=== PATIENT | male | born 1940 | race Caucasian/White ===

== ENCOUNTER 2021-08-01 17:45 | Inpatient (IN) ==
[2021-08-01 20:53] LABS: Basophils # (auto) 0.03 K/uL (0-0.2); Basophils % (auto) 0.4 %; Eosinophils % (auto) 10.7 %; Hemoglobin 16.3 g/dL (14.0-18.0); Immature Granulocytes # (auto) 0.02 K/uL (0.00-0.02); Immature Granulocytes % (auto) 0.3 %; Lymphocytes # (auto) 1.74 K/uL (1.2-3.4); Lymphocytes % (auto) 23.3 %; Mean Corpuscular Hemoglobin 30.5 pg (25-34); Mean Corpuscular Hgb Conc 33.3 g/dL (32-36); Mean Corpuscular Volume 91.6 fL (80-100); Mean Platelet Volume 9.9 fL (7.4-10.4); Monocytes # (auto) 0.82 K/uL (0.11-0.59); Neutrophils # (auto) 4.05 K/uL (1.4-6.5); Neutrophils % (auto) 54.3 %; Platelet Count 189 K/uL (130-400); RDW Coefficient of Variation 13.5 % (11.5-14.5); RDW Standard Deviation 45.3 fL (36.4-46.3); Red Blood Count 5.35 M/uL (4.7-6.1); White Blood Count 7.46 K/uL (4.8-10.8)
[2021-08-01 21:11] LABS: Albumin Level 3.4 gm/dl (3.4-5.0); BUN Creatinine Ratio 13.5 (10-20); Calcium 9.1 mg/dl (8.5-10.1); Creatinine Clr Calc Pharmacy 60.7 ml/min; Est GFR (African American) 78.6 ml/min; Est GFR (Non-African American) 67.8 ml/min; Potassium 4.7 mmol/L (3.5-5.1)
[2021-08-01 21:14] LABS: Bilirubin,Total 0.6 mg/dl (0.2-1); Globulin 3.6 gm/dl (2.5-4.0)
[2021-08-01 21:14] LABS: Appearance Urine Clear (Clear); Bilirubin Urine Negative (Negative); Blood Urine Negative (Negative); Color Urine Yellow; Glucose Urine UA Negative (Negative); Ketones Urine Negative (Negative); Leukocyte Esterase Urine Negative (Negative); Nitrite Urine Negative (Negative); Protein Urine Negative (Negative); Specific Gravity Urine 1.019 (1.000-1.030); Urobilinogen Urine Negative (Negative); pH Urine 5.5 (4.5-7.5)
[2021-08-01 23:02] LABS: INR 1.1 (0.9-1.1); Partial Thromboplastin Ratio 0.9; Partial Thromboplastin Time 24.2 Seconds (21.0-31.0); Prothrombin Time 10.9 Seconds (9.0-12.0)
[2021-08-01] MEDS ORDERED: cefTRIAXone SODIUM 2,000 MG/70 ML BAG IV STA (23:22)
[2021-08-01] MEDS ORDERED: DAPTOmycin 275 MG in SYRINGE 0 ML IV ONE (23:22)
[2021-08-01 23:39] LABS: C Reactive Protein 0.36 mg/dl (0-0.29)
--- NOTE | 2021-08-01 23:57 | History & Physical Report ---
Date of Service August 01, 2021 Assessment & Plan (1) Bilateral cellulitis of lower leg: Plan: Bilateral cellulitis of lower extremities/cellulitis of scrotum- Likely worsened by use of topical Neosporin, advised against further use. Continue daptomycin IV and ceftriaxone IV begun in the ED Wound care consult Venous Dopplers negative for DVT bilaterally Unclear etiology of multiple isolated skin lesions (2) Cellulitis of scrotum: Plan: See above (3) Benign prostatic hyperplasia with urinary obstruction: Plan: Continue dutasteride (4) Hypercholesterolemia: Plan: Continue rosuvastatin 20 mg at bedtime (5) Hypertension: Plan: Continue aspirin, lisinopril, and metoprolol succinate (6) GERD (gastroesophageal reflux disease): Plan: Continue omeprazole/pantoprazole History of Present Illness Chief Complaint: The patient presents to the emergency department with worsening wound infections over the past week and both lower extremities, and had been using Neosporin topically to each lesion Primary Care Provider: René Malik MD The patient is an 81-year-old male with a past history of being BPH with LUTS, gross hematuria, nephrolithiasis, hypertension, and hyperlipidemia who presents to the emergency department with symptoms above. Work-up in the emergency department included negative bilateral lower extremity venous Dopplers for DVT. Laboratories in the emergency department were normal, including a normal urinalysis and negative COVID-19 test. Patient did receive daptomycin IV and ceftriaxone IV from the ED while still in the ED. Allergies Allergy/AdvReac Type Severity Reaction Status Date / Time No Known Allergies Allergy Verified 08/01/21 22:59 Home Medications Medication Instructions Recorded Confirmed Type aspirin 81 mg tablet,delayed 162 mg PO QPM 06/24/21 08/01/21 History release cholecalciferol (vitamin D3) 25 25 mcg PO QAM 06/24/21 08/01/21 History mcg (1,000 unit) capsule (Vitamin D3) dutasteride 0.5 mg capsule 0.5 mg PO QPM 06/24/21 08/01/21 History (Avodart) glucosamine-chondroitin 250 mg-200 1 tab PO QPM 06/24/21 08/01/21 History mg tablet (Osteo Bi-Flex) lisinopril 20 mg tablet 20 mg PO QPM 06/24/21 08/01/21 History metoprolol succinate 100 mg 100 mg PO QAM 06/24/21 08/01/21 History tablet,extended release 24 hr omeprazole magnesium 20 mg 20 mg PO DAILY PRN 06/24/21 08/01/21 History tablet,delayed release (Prilosec OTC) rosuvastatin 20 mg tablet (Crestor) 20 mg PO QPM 06/24/21 08/01/21 History Past Med/Surg History Medical History (Updated 08/02/21 @ 04:39 by Bryan Dorado MD) BPH (benign prostatic hyperplasia) Deep vein thrombosis RT LEG (4 YEARS AGO/? REASON) GERD (gastroesophageal reflux disease) Hearing deficit History of bladder stone History of kidney stones History of skin cancer Hypercholesterolemia Hypertension Myocardial Infarction 10 YEARS AGO Nephrolithiasis Pulmonary embolism 4 YEARS AGO ? REASON Reactive airway disease NO INHALER TIA (transient ischemic attack) MAY 20, 2021>SYMPTOMS RESOLVED/NO DEFECITS Surgical History H/O eye surgery LEFT EYE LASER SURGERY History of anesthesia reaction History of colonoscopy History of cystoscopy History of heart artery stent 2 STENTS PLACED ([facility]/10 YEARS AGO) History of lithotripsy History of tooth extraction Family History Father History of parotid cancer Prostate cancer Cardiac disorder Mother Diabetes Cardiac disorder Brother Prostate cancer Kidney stones Other No family history of adverse response to anesthesia Social History Smoking Status: Former smoker Second Hand Exposure: No; Do You Dip or Chew Tobacco: No; Hx Alcohol Use: No Hx Substance Use: No 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 current occupational status: retired Feels Safe at Home: Yes Assistive Devices: Cane, Hearing Aid - Left and Hearing Aid - Right Review of Systems Review of Systems: The patient denies chest pain, palpitations, shortness of breath, dyspnea on exertion, cough, sore throat, fevers, chills, sweats, nausea, vomiting, diarrhea , constipation, abdominal pain, pelvic pain, blood in urine or stool, dysuria, urinary frequency or urgency, lightheadedness, dizziness, headache, memory loss, loss of consciousness, imbalance, focal or generalized weakness, numbness or tingling in arms, generalized arthralgias or myalgias, back or neck pain, or night sweats. The review of systems is otherwise negative other than for that already noted above, and at least 10 systems have been reviewed. Physical Exam Physical Exam: The patient is awake, alert and oriented 3, well developed and well nourished, normocephalic and atraumatic, lying in bed and in no acute distress. HEENT--PERRL, EOMI, mucous membranes and oropharynx normal Neck--supple. No JVD. No bruits. Thyroid normal, trachea midline, no adenopathy. Heart--normal S1 and S2. No murmurs, rubs or gallops. Lungs--clear bilaterally, no respiratory distress, no accessory muscle use. Abdomen--normal bowel sounds and soft. Nontender. Nondistended, no hernias or masses, no organomegaly. Extremities--multiple skin abrasions bilateral lower extremities, with surrounding erythema, and rash extending to groin Dermatologic--see above Neurologic--cranial nerves II through XII grossly intact. Rheumatologic--limited by painful skin lesions Psychiatric--normal affect. Results & Data Results & Data ([facility]) Vital Signs (Past 12 Hours) Vital Signs Temp Pulse Pulse Resp BP Pulse Ox 08/01/21 23:54 71 20 178/95 H 96 08/01/21 22:25 97.9 F 76 18 184/93 H 96 08/01/21 18:53 97.3 F L 68 20 96 Laboratory Results Laboratory Results WBC 7.46 K/uL (4.8-10.8) 08/01/21 20:41 RBC 5.35 M/uL (4.7-6.1) 08/01/21 20:41 Hgb 16.3 g/dL (14.0-18.0) 08/01/21 20:41 Hct 49.0 % (42-52) 08/01/21 20:41 MCV 91.6 fL (80-100) 08/01/21 20:41 MCH 30.5 pg (25-34) 08/01/21 20:41 MCHC 33.3 g/dL (32-36) 08/01/21 20:41 RDW Std Deviation 45.3 fL (36.4-46.3) 08/01/21 20:41 RDW Coeff of Kateryna 13.5 % (11.5-14.5) 08/01/21 20:41 Plt Count 189 K/uL (130-400) 08/01/21 20:41 MPV 9.9 fL (7.4-10.4) 08/01/21 20:41 Immature Gran % (Auto) 0.3 % 08/01/21 20:41 Neut % (Auto) 54.3 % 08/01/21 20:41 Lymph % (Auto) 23.3 % 08/01/21 20:41 [place] % (Auto) 11.0 % 08/01/21 20:41 Eos % (Auto) 10.7 % 08/01/21 20:41 Baso % (Auto) 0.4 % 08/01/21 20:41 Neut # (Auto) 4.05 K/uL (1.4-6.5) 08/01/21 20:41 Lymph # (Auto) 1.74 K/uL (1.2-3.4) 08/01/21 20:41 [place] # (Auto) 0.82 K/uL (0.11-0.59) H 08/01/21 20:41 Eos # (Auto) 0.80 K/uL (0-0.5) H 08/01/21 20:41 Baso # (Auto) 0.03 K/uL (0-0.2) 08/01/21 20:41 Immature Gran # (Auto) 0.02 K/uL (0.00-0.02) 08/01/21 20:41 ESR 18 mm/hr (0-20) 08/01/21 20:41 PT 10.9 Seconds (9.0-12.0) 08/01/21 22:34 INR 1.1 (0.9-1.1) 08/01/21 22:34 APTT 24.2 Seconds (21.0-31.0) 08/01/21 22:34 PTT Ratio 0.9 08/01/21 22:34 Sodium 140 mmol/L (136-145) 08/01/21 20:41 Potassium 4.7 mmol/L (3.5-5.1) 08/01/21 20:41 Chloride 106 mmol/L (98-107) 08/01/21 20:41 Carbon Dioxide 29 mmol/L (21-32) 08/01/21 20:41 Anion Gap 5.0 (3-11) 08/01/21 20:41 BUN 14 mg/dl (7-18) 08/01/21 20:41 Creatinine 1.03 mg/dl (0.6-1.4) 08/01/21 20:41 Est Cr Clr Drug Dosing 60.7 ml/min 08/01/21 20:41 Est GFR ( Amer) 78.6 ml/min 08/01/21 20:41 Est GFR (Non-Af Amer) 67.8 ml/min 08/01/21 20:41 BUN/Creatinine Ratio 13.5 (10-20) 08/01/21 20:41 Glucose 94 mg/dl (70-99) 08/01/21 20:41 Calcium 9.1 mg/dl (8.5-10.1) 08/01/21 20:41 Total Bilirubin 0.6 mg/dl (0.2-1) 08/01/21 20:41 AST 21 U/L (15-37) 08/01/21 20:41 ALT 27 U/L (12-78) 08/01/21 20:41 Alkaline Phosphatase 93 U/L (45-117) 08/01/21 20:41 C-Reactive Protein 0.36 mg/dl (0-0.29) H 08/01/21 20:41 Total Protein 7.0 gm/dl (6.4-8.2) 08/01/21 20:41 Albumin 3.4 gm/dl (3.4-5.0) 08/01/21 20:41 Globulin 3.6 gm/dl (2.5-4.0) 08/01/21 20:41 Albumin/Globulin Ratio 1.0 (0.9-2) 08/01/21 20:41 Urine Color Yellow 08/01/21 Unknown Urine Appearance Clear (Clear) 08/01/21 Unknown Urine pH 5.5 (4.5-7.5) 08/01/21 Unknown Ur Specific [place] 1.019 (1.000-1.030) 08/01/21 Unknown Urine Protein Negative (Negative) 08/01/21 Unknown Urine Glucose (UA) Negative (Negative) 08/01/21 Unknown Urine Ketones Negative (Negative) 08/01/21 Unknown Urine Blood Negative (Negative) 08/01/21 Unknown Urine Nitrite Negative (Negative) 08/01/21 Unknown Urine Bilirubin Negative (Negative) 08/01/21 Unknown Urine Urobilinogen Negative (Negative) 08/01/21 Unknown Ur Leukocyte Esterase Negative (Negative) 08/01/21 Unknown COVID-19 Eval Order Covid19 at [facility] 08/02/21 00:00 SARS-CoV-2 (PCR) NEGATIVE (Negative) 08/02/21 00:00 Code Status & VTE Plan Code Status Full code VTE Prophylaxis Plan VTE Prophylaxis will be ordered: Yes PG Care Time/CCT Total # of Minutes Spent Total Time Spent with Patient: Total time spent is greater than 50% in coordination of care (as documented) at patient's floor/unit and/or counseling patient: Coding Level of Care Code 15713 Initial Inpt Care Lvl 3 Diagnoses Bilateral cellulitis of lower leg L03.116; L03.115 Cellulitis of scrotum N49.2 Benign prostatic hyperplasia with urinary obstruction N40.1; N13.8 Hypercholesterolemia E78.00 Hypertension I10 GERD (gastroesophageal reflux disease) K21.9
--- NOTE | 2021-08-02 02:01 | Emergency Department Note ---
Impression & Plan Bilateral cellulitis of lower leg, Cellulitis of scrotum ED Provider Note INFORMANT: Patient and daughter ED PROVIDER(S): Rajeev Gutierres MD CHIEF COMPLAINT: Infection PLAN: Disposition: Admitted Condition: Good Outpatient prescription management: none Referral: None MEDICAL DECISION MAKING: Patient presented because of concerns about wound infection. His leg examination as well scrotal examination was concerning for cellulitis. Cultures were obtained including a superficial culture of the fluid draining on the left thigh. The patient had IV Rocephin and daptomycin given. I discussed conservative management with admission and further treatment in the hospital. Patient and family were in agreement. Consultation was made with Dr. Bryan Dorado of the [facility] service. Patient was evaluated in the ER for further management. Triage Nursing notes reviewed and agree them. Vital Signs: reviewed and remarkable for no significant abnormalities Differential diagnosis: Cellulitis, abscess, MRSA infection, DVT, necrotizing fasciitis, dermatitis, drug eruption, allergic reaction, as well as other pathologies. Diagnostics interpreted by me: EC Lead ECG performed and revealed sinus rhythym at 69 bpm with sinus arrhythmia, normal Leigh, QRS normal. No elevation or depression. No PACs or PVCs Cardiac Monitoring: none Imaging studies: Ultrasound imaging of the bilateral lower extremities is negative for DVT. HPI: The patient is a 81 year old male who presents to the Emergency Room with complaints of bilateral leg raise R possibly infected. This started 8 days ago and is rapidly worsening. The patient also notes the following associated symptoms, blistering of the skin on both legs and scrotum, erythema of both legs around the wounds as well as the scrotum. The patient has tried topical antibiotic ointment for relieving factors. Current pain is rated as 4/10. Pt denies LOC, headache, fevers, chills, diaphoresis, visual changes, neck pain, chest pain, breathing difficulties, nausea, vomiting, abdominal pain, back pain, melena, hematochezia, urinary symptoms, numbness, weakness, lymphadenopathy, or other complaints. ROS: See above HPI for pertinent positives & negatives. A total of 10 systems reviewed and were otherwise negative. PAST MEDICAL HISTORY:See Below , DVT, PE PAST SURGICAL HISTORY:See Below, FAMILY HISTORY:See Below SOCIAL HISTORY:See Below, patient just moved. He is without primary physician currently. HOME MEDICATIONS:See Below ALLERGIES:See Below VITALS:See Below PHYSICAL EXAMINATION: GENERAL: Awake, alert, well-appearing, in no distress HENT: Normocephalic, atraumatic. Oropharynx unremarkable. EYES: Normal conjunctiva. Sclera non-icteric. NECK: Inspection normal. Non-tender. Supple. No nuchal rigidity. FROM. No masses. RESPIRATORY: Clear to auscultation. No wheezes. No rales. Normal respiratory effort. CARDIAC: Normal rate. Normal rhythm. No murmurs. No rubs. Extremities warm and well perfused. Pulses equal. No JVD. GI: Soft, non-distended. No tenderness to palpation. No rebound or guarding. No masses. RECTAL: Deferred. : There is erythema of the scrotum. Several areas of blistering-like wound noted in different stages of healing. No crepitus or subcu air appreciated. MUSCULOSKELETAL: Atraumatic. Chest examination reveals no tenderness. The back is symmetrical on inspection without obvious abnormality. There is no CVA tenderness to palpation. No joint edema. LOWER EXTREMITIES: Calves are equal size bilaterally and non-tender. Trace ed blaze. Scattered bullae and desquamation noted in the medial aspect of both thighs with surrounding erythema, warmth and tenderness concerning for secondary cellulitis. No crepitus. NEURO: Normal sensorium. No sensory or motor deficits noted. SKIN: No rash or jaundice noted. Rajeev Gutierres MD Past Med/Surg History Medical History BPH (benign prostatic hyperplasia) Deep vein thrombosis RT LEG (4 YEARS AGO/? REASON) GERD (gastroesophageal reflux disease) Hearing deficit History of bladder stone History of kidney stones History of skin cancer Hypercholesterolemia Hypertension Myocardial Infarction 10 YEARS AGO Nephrolithiasis Pulmonary embolism 4 YEARS AGO ? REASON Reactive airway disease NO INHALER TIA (transient ischemic attack) MAY 20, 2021>SYMPTOMS RESOLVED/NO DEFECITS Surgical History H/O eye surgery LEFT EYE LASER SURGERY History of anesthesia reaction History of colonoscopy History of cystoscopy History of heart artery stent 2 STENTS PLACED ([facility]/10 YEARS AGO) History of lithotripsy History of tooth extraction Family History Father History of parotid cancer Prostate cancer Cardiac disorder Mother Diabetes Cardiac disorder Brother Prostate cancer Kidney stones Other No family history of adverse response to anesthesia Social History Smoking Status: Former smoker Second Hand Exposure: No; Hx Alcohol Use: No 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 Beliefs That Will Affect Care: None marital status: / Current Living Situation: Alone current occupational status: retired Feels Safe at Home: Yes Assistive Devices: Cane and Glasses Allergies Allergies Allergy/AdvReac Type Severity Reaction Status Date / Time No Known Allergies Allergy Verified 08/01/21 22:59 Home Meds Home Medications Medication Instructions Recorded Confirmed aspirin 81 mg tablet,delayed 162 mg PO QPM 06/24/21 08/01/21 release cholecalciferol (vitamin D3) 25 25 mcg PO QAM 06/24/21 08/01/21 mcg (1,000 unit) capsule (Vitamin D3) dutasteride 0.5 mg capsule 0.5 mg PO QPM 06/24/21 08/01/21 (Avodart) glucosamine-chondroitin 250 mg-200 1 tab PO QPM 06/24/21 08/01/21 mg tablet (Osteo Bi-Flex) lisinopril 20 mg tablet 20 mg PO QPM 06/24/21 08/01/21 metoprolol succinate 100 mg 100 mg PO QAM 06/24/21 08/01/21 tablet,extended release 24 hr omeprazole magnesium 20 mg 20 mg PO DAILY PRN 06/24/21 08/01/21 tablet,delayed release (Prilosec OTC) rosuvastatin 20 mg tablet (Crestor) 20 mg PO QPM 06/24/21 08/01/21 Results & Data (ED) Vital Signs Vital Signs - 24 hr 08/01/21 18:53 08/01/21 22:25 08/01/21 23:54 Temperature 36.3 C L 36.6 C Temperature Source Temporal Artery Scan Oral Pulse Rate 68 Pulse Rate [Right Finger] 76 71 Respiratory Rate 20 18 20 Respiratory Effort / Characteristics Non-Labored Spontaneous Respiratory Depth Normal Normal Blood Pressure [Right Arm] 184/93 H 178/95 H Blood Pressure Mean [Right Arm] 123 122 Pulse Oximetry 96 96 96 Oxygen Delivery Method Room Air Room Air Room Air Sepsis New/Unexplained Change in Mental Status N/A Sepsis Action Taken by Nursing No Action Required 08/02/21 01:07 Temperature Temperature Source Pulse Rate Pulse Rate [Right Finger] 70 Respiratory Rate 20 Respiratory Effort / Characteristics Non-Labored Spontaneous Respiratory Depth Normal Blood Pressure [Right Arm] 178/95 H Blood Pressure Mean [Right Arm] 122 Pulse Oximetry 94 Oxygen Delivery Method Room Air Sepsis New/Unexplained Change in Mental Status Sepsis Action Taken by Nursing Laboratory Data Result diagrams: 08/01/21 20:41 08/01/21 20:41 Lab Results 08/01/21 08/01/21 08/01/21 Range/Units 20:41 20:41 20:41 WBC 7.46 (4.8-10.8) K/uL RBC 5.35 (4.7-6.1) M/uL Hgb 16.3 (14.0-18.0) g/dL Hct 49.0 (42-52) % MCV 91.6 (80-100) fL MCH 30.5 (25-34) pg MCHC 33.3 (32-36) g/dL RDW Std Deviation 45.3 (36.4-46.3) fL RDW Coeff of Kateryna 13.5 (11.5-14.5) % Plt Count 189 (130-400) K/uL MPV 9.9 (7.4-10.4) fL Immature Gran % (Auto) 0.3 % Neut % (Auto) 54.3 % Lymph % (Auto) 23.3 % [place] % (Auto) 11.0 % Eos % (Auto) 10.7 % Baso % (Auto) 0.4 % Neut # (Auto) 4.05 (1.4-6.5) K/uL Lymph # (Auto) 1.74 (1.2-3.4) K/uL [place] # (Auto) 0.82 H (0.11-0.59) K/uL Eos # (Auto) 0.80 H (0-0.5) K/uL Baso # (Auto) 0.03 (0-0.2) K/uL Immature Gran # (Auto) 0.02 (0.00-0.02) K/uL ESR 18 (0-20) mm/hr PT (9.0-12.0) Seconds INR (0.9-1.1) APTT (21.0-31.0) Seconds PTT Ratio Sodium 140 (136-145) mmol/L Potassium 4.7 (3.5-5.1) mmol/L Chloride 106 (98-107) mmol/L Carbon Dioxide 29 (21-32) mmol/L Anion Gap 5.0 (3-11) BUN 14 (7-18) mg/dl Creatinine 1.03 (0.6-1.4) mg/dl Est Cr Clr Drug Dosing 60.7 ml/min Est GFR ( Amer) 78.6 ml/min Est GFR (Non-Af Amer) 67.8 ml/min BUN/Creatinine Ratio 13.5 (10-20) Glucose 94 (70-99) mg/dl Calcium 9.1 (8.5-10.1) mg/dl Total Bilirubin 0.6 (0.2-1) mg/dl AST 21 (15-37) U/L ALT 27 (12-78) U/L Alkaline Phosphatase 93 (45-117) U/L C-Reactive Protein 0.36 H (0-0.29) mg/dl Total Protein 7.0 (6.4-8.2) gm/dl Albumin 3.4 (3.4-5.0) gm/dl Globulin 3.6 (2.5-4.0) gm/dl Albumin/Globulin Ratio 1.0 (0.9-2) Urine Color Urine Appearance (Clear) Urine pH (4.5-7.5) Ur Specific [place] (1.000-1.030) Urine Protein (Negative) Urine Glucose (UA) (Negative) Urine Ketones (Negative) Urine Blood (Negative) Urine Nitrite (Negative) Urine Bilirubin (Negative) Urine Urobilinogen (Negative) Ur Leukocyte Esterase (Negative) COVID-19 Eval Order SARS-CoV-2 (PCR) (Negative) 08/01/21 08/01/21 08/02/21 Range/Units 22:34 Unknown 00:00 WBC (4.8-10.8) K/uL RBC (4.7-6.1) M/uL Hgb (14.0-18.0) g/dL Hct (42-52) % MCV (80-100) fL MCH (25-34) pg MCHC (32-36) g/dL RDW Std Deviation (36.4-46.3) fL RDW Coeff of Kateryna (11.5-14.5) % Plt Count (130-400) K/uL MPV (7.4-10.4) fL Immature Gran % (Auto) % Neut % (Auto) % Lymph % (Auto) % [place] % (Auto) % Eos % (Auto) % Baso % (Auto) % Neut # (Auto) (1.4-6.5) K/uL Lymph # (Auto) (1.2-3.4) K/uL [place] # (Auto) (0.11-0.59) K/uL Eos # (Auto) (0-0.5) K/uL Baso # (Auto) (0-0.2) K/uL Immature Gran # (Auto) (0.00-0.02) K/uL ESR (0-20) mm/hr PT 10.9 (9.0-12.0) Seconds INR 1.1 (0.9-1.1) APTT 24.2 (21.0-31.0) Seconds PTT Ratio 0.9 Sodium (136-145) mmol/L Potassium (3.5-5.1) mmol/L Chloride (98-107) mmol/L Carbon Dioxide (21-32) mmol/L Anion Gap (3-11) BUN (7-18) mg/dl Creatinine (0.6-1.4) mg/dl Est Cr Clr Drug Dosing ml/min Est GFR ( Amer) ml/min Est GFR (Non-Af Amer) ml/min BUN/Creatinine Ratio (10-20) Glucose (70-99) mg/dl Calcium (8.5-10.1) mg/dl Total Bilirubin (0.2-1) mg/dl AST (15-37) U/L ALT (12-78) U/L Alkaline Phosphatase (45-117) U/L C-Reactive Protein (0-0.29) mg/dl Total Protein (6.4-8.2) gm/dl Albumin (3.4-5.0) gm/dl Globulin (2.5-4.0) gm/dl Albumin/Globulin Ratio (0.9-2) Urine Color Yellow Urine Appearance Clear (Clear) Urine pH 5.5 (4.5-7.5) Ur Specific [place] 1.019 (1.000-1.030) Urine Protein Negative (Negative) Urine Glucose (UA) Negative (Negative) Urine Ketones Negative (Negative) Urine Blood Negative (Negative) Urine Nitrite Negative (Negative) Urine Bilirubin Negative (Negative) Urine Urobilinogen Negative (Negative) Ur Leukocyte Esterase Negative (Negative) COVID-19 Eval Order Covid19 at [facility] SARS-CoV-2 (PCR) (Negative) 08/02/21 Range/Units 00:00 WBC (4.8-10.8) K/uL RBC (4.7-6.1) M/uL Hgb (14.0-18.0) g/dL Hct (42-52) % MCV (80-100) fL MCH (25-34) pg MCHC (32-36) g/dL RDW Std Deviation (36.4-46.3) fL RDW Coeff of Kateryna (11.5-14.5) % Plt Count (130-400) K/uL MPV (7.4-10.4) fL Immature Gran % (Auto) % Neut % (Auto) % Lymph % (Auto) % [place] % (Auto) % Eos % (Auto) % Baso % (Auto) % Neut # (Auto) (1.4-6.5) K/uL Lymph # (Auto) (1.2-3.4) K/uL [place] # (Auto) (0.11-0.59) K/uL Eos # (Auto) (0-0.5) K/uL Baso # (Auto) (0-0.2) K/uL Immature Gran # (Auto) (0.00-0.02) K/uL ESR (0-20) mm/hr PT (9.0-12.0) Seconds INR (0.9-1.1) APTT (21.0-31.0) Seconds PTT Ratio Sodium (136-145) mmol/L Potassium (3.5-5.1) mmol/L Chloride (98-107) mmol/L Carbon Dioxide (21-32) mmol/L Anion Gap (3-11) BUN (7-18) mg/dl Creatinine (0.6-1.4) mg/dl Est Cr Clr Drug Dosing ml/min Est GFR ( Amer) ml/min Est GFR (Non-Af Amer) ml/min BUN/Creatinine Ratio (10-20) Glucose (70-99) mg/dl Calcium (8.5-10.1) mg/dl Total Bilirubin (0.2-1) mg/dl AST (15-37) U/L ALT (12-78) U/L Alkaline Phosphatase (45-117) U/L C-Reactive Protein (0-0.29) mg/dl Total Protein (6.4-8.2) gm/dl Albumin (3.4-5.0) gm/dl Globulin (2.5-4.0) gm/dl Albumin/Globulin Ratio (0.9-2) Urine Color Urine Appearance (Clear) Urine pH (4.5-7.5) Ur Specific [place] (1.000-1.030) Urine Protein (Negative) Urine Glucose (UA) (Negative) Urine Ketones (Negative) Urine Blood (Negative) Urine Nitrite (Negative) Urine Bilirubin (Negative) Urine Urobilinogen (Negative) Ur Leukocyte Esterase (Negative) COVID-19 Eval Order SARS-CoV-2 (PCR) NEGATIVE (Negative) Administered Medications Discontinued Medications Ceftriaxone Sodium (Rocephin) 2,000 mg in 70 mls @ 140 mls/hr IV NOW STA Stop: 08/01/21 23:51 Last Admin: 08/02/21 01:05 Dose: 140 mls/hr Documented by: [id number] Daptomycin 275 mg/ Syringe 5.5 mls @ 2.75 mls/min IV NOW ONE; Protocol Stop: 08/01/21 23:23 Last Admin: 08/02/21 01:02 Dose: 2.75 mls/min Documented by: [id number] Discharge Plan Visit Data Chief Complaint: Infection, Wound Stated Complaint: CELLULITIS IN BOTH LEGS, WOUNDS, REDNESS ED Provider: Rajeev Gutierres Discharge Problem: Bilateral cellulitis of lower leg, Cellulitis of scrotum Forms Stand Alone Forms: My [facility] Prescriptions Prescriptions: No Action lisinopril 20 mg Tablet 20 mg PO QPM RF: 0 metoprolol succinate 100 mg Tablet Extended Release 24 Hr 100 mg PO QAM RF: 0 cholecalciferol (vitamin D3) [Vitamin D3] 25 mcg (1,000 unit) Capsule 25 mcg PO QAM RF: 0 dutasteride [Avodart] 0.5 mg Capsule 0.5 mg PO QPM RF: 0 rosuvastatin [Crestor] 20 mg Tablet 20 mg PO QPM RF: 0 aspirin 81 mg Tablet,Delayed Release (Dr/Ec) 162 mg PO QPM RF: 0 glucosamine-chondroitin [Osteo Bi-Flex] 250-200 mg Tablet 1 tab PO QPM RF: 0 omeprazole magnesium [Prilosec OTC] 20 mg Tablet,Delayed Release (Dr/Ec) 20 mg PO DAILY PRN (Reason: Acid Reflux) RF: 0 Referrals Referrals: René Malik MD [Primary Care Provider] -
[2021-08-02] MEDS ORDERED: ONDANSETRON INJ 2 MG/ML 2 ML VIAL IV PRN (03:21)
[2021-08-02] MEDS ORDERED: ACETAMINOPHEN 325 MG TAB PO PRN (03:21)
[2021-08-02] MEDS ORDERED: PANTOprazole 40 MG TAB PO PRN (03:36)
[2021-08-02] MEDS: DUTASTERIDE: ORDER AWAITING ACTION SCH ×3 (07:31→23:02)
[2021-08-02 08:06] LABS: Basophils # (auto) 0.03 K/uL (0-0.2); Basophils % (auto) 0.4 %; Eosinophils # (auto) 0.85 K/uL (0-0.5); Eosinophils % (auto) 11.1 %; Hematocrit (blood only) 46.1 % (42-52); Hemoglobin 15.8 g/dL (14.0-18.0); Immature Granulocytes # (auto) 0.01 K/uL (0.00-0.02); Immature Granulocytes % (auto) 0.1 %; Lymphocytes # (auto) 1.74 K/uL (1.2-3.4); Lymphocytes % (auto) 22.8 %; Mean Corpuscular Hemoglobin 30.4 pg (25-34); Mean Corpuscular Hgb Conc 34.3 g/dL (32-36); Mean Corpuscular Volume 88.8 fL (80-100); Mean Platelet Volume 10.2 fL (7.4-10.4); Monocytes # (auto) 0.83 K/uL (0.11-0.59); Monocytes % (auto) 10.9 %; Neutrophils # (auto) 4.17 K/uL (1.4-6.5); Neutrophils % (auto) 54.7 %; Platelet Count 168 K/uL (130-400); RDW Coefficient of Variation 13.2 % (11.5-14.5); RDW Standard Deviation 43.1 fL (36.4-46.3); Red Blood Count 5.19 M/uL (4.7-6.1); White Blood Count 7.63 K/uL (4.8-10.8)
--- NOTE | 2021-08-02 08:28 | Ultrasound Report ---
US venous doppler LE BI CLINICAL HISTORY: eval DVT COMPARISON STUDY: No previous studies for comparison. FINDINGS: Real-time and color flow Doppler imaging were performed. Flow was seen within the bilateral femoral, popliteal and calf veins with no intraluminal thrombus demonstrated. The saphenous vein is patent. Multiple skin lesions in bilateral medial thigh reported by premises technician. IMPRESSION: No evidence of deep venous thrombosis in bilateral lower extremities. ACT 112: Negative or not required by law. The above report was generated using voice recognition software. It may contain grammatical, syntax o r spelling errors. Electronically signed by: Carolyn Cortes DO 08/02/2021 8:27 AM
[2021-08-02] MEDS: CHOLECALCIFEROL 1,000 UNITS 25 MCG TAB PO SCH (08:46)
[2021-08-02] MEDS: METOPROLOL SUCC 50MG EXT REL TAB PO SCH (08:46)
[2021-08-02 08:50] LABS: Albumin Globulin Ratio 0.9 (0.9-2); Albumin Level 3.1 gm/dl (3.4-5.0); BUN Creatinine Ratio 14.2 (10-20); Bilirubin,Total 0.6 mg/dl (0.2-1); Calcium 8.8 mg/dl (8.5-10.1); Creatinine Clr Calc Pharmacy 78.3 ml/min; Est GFR (African American) 97.6 ml/min; Est GFR (Non-African American) 84.2 ml/min; Globulin 3.4 gm/dl (2.5-4.0); Potassium 3.6 mmol/L (3.5-5.1); Total Protein 6.5 gm/dl (6.4-8.2)
--- NOTE | 2021-08-02 18:43 | Hospitalist Progress Note ---
Date of Service August 02, 2021 Assessment & Plan (1) Bilateral cellulitis of lower leg: Plan: - Bilateral cellulitis of lower extremities/cellulitis of scrotum -- Reports sporadic pimple-like lesions that blister and he tends to pop them - no known H/O MRSA but seems convincing -- Does not look like a contact dermatitis or specifically like bites; maybe a fungal component from the groin but even satelite lesions from fungal infections are completely consistent -- States he did change to new adult depends so maybe some irritation in the groin however again doesnt really reflect a contact dermatitis - Will continue Dapto and Ceftriaxone at this time; surface cx pending - However given discription likely will cover for MRSA; wound care following and instructions given - if wound do not close in 1-2 weeks will need wound care follow-up (2) Cellulitis of scrotum: Plan: - See above (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 Just had his wounds dressed during my visit. Uncertain the etiology but states the tend to start as little pimples that blister then he pops them. Possible MRSA? No pets in the home so unlikely flea bites and do not appear like bites. Did recently try new adult depend briefs due to the previous brand causing groin irritation. Maybe a fungal component? So far no growth on culture. No direct pain with the lesions. Review of Systems Review of Systems: REVIEW OF SYSTEMS General/Constitutional: Denies fever/chills Cardiovascular: Denies chest pain, palpitations, edema Respiratory: Denies cough, sputum, SOB, wheezing GI: Denies nausea, vomiting, abdominal pain, constipation, diarrhea : Denies dysuria Musculoskeletal: Denies joint/muscle aches Neurologic: Denies dizziness/lightheadedness Skin: + blistering boils that mostly scab but some do not scab over with drainage Results & Data Results & Data ([facility]) Vital Signs (Past 12 Hours) Vital Signs Temp Pulse Resp BP Pulse Ox 08/02/21 15:01 36.5 C 69 16 183/86 H 94 08/02/21 07:26 36.4 C L 66 16 149/75 H 96 PG Care Time/CCT Total # of Minutes Spent Total Time Spent with Patient: Total time spent is greater than 50% in coordination of care (as documented) at patient's floor/unit and/or counseling patient: Coding Level of Care Code 41366 Subseq Hosp Care Lvl 2 Diagnoses Bilateral cellulitis of lower leg L03.116; L03.115 Cellulitis of scrotum N49.2 Benign prostatic hyperplasia with urinary obstruction N40.1; N13.8 Hypercholesterolemia E78.00 Hypertension I10 GERD (gastroesophageal reflux disease) K21.9
[2021-08-02] MEDS ORDERED: NON-FORMULARY MEDICATION (Glucosamine-Chondroitin [Osteo Bi-Flex] 250-200 mg Tablet) PO SCH (21:00)
[2021-08-02] MEDS ORDERED: cefTRIAXone SODIUM 2,000 MG in DEXTROSE 5% 50 ML IV SCH (21:00)
[2021-08-02] MEDS ORDERED: ASPIRIN 81 MG ECTAB PO SCH (21:00)
[2021-08-02] MEDS ORDERED: ROSUVASTATIN CALCIUM 20 MG TAB PO SCH (21:00)
[2021-08-02] MEDS ORDERED: lisinopril 20 MG TAB PO SCH (21:00)
[2021-08-02] MEDS: NYSTATIN POWDER 15GM BTL EXT SCH (21:09)
[2021-08-02] MEDS ORDERED: DAPTOmycin 275 MG in SYRINGE 0 ML IV SCH (23:00)
[2021-08-03 06:23] LABS: Basophils # (auto) 0.05 K/uL (0-0.2); Basophils % (auto) 0.5 %; Eosinophils # (auto) 0.91 K/uL (0-0.5); Eosinophils % (auto) 9.7 %; Hematocrit (blood only) 52.3 % (42-52); Hemoglobin 17.3 g/dL (14.0-18.0); Immature Granulocytes # (auto) 0.02 K/uL (0.00-0.02); Immature Granulocytes % (auto) 0.2 %; Lymphocytes % (auto) 23.4 %; Mean Corpuscular Hemoglobin 30.2 pg (25-34); Mean Corpuscular Hgb Conc 33.1 g/dL (32-36); Mean Corpuscular Volume 91.4 fL (80-100); Mean Platelet Volume 10.3 fL (7.4-10.4); Monocytes % (auto) 9.6 %; Neutrophils # (auto) 5.31 K/uL (1.4-6.5); Neutrophils % (auto) 56.6 %; Platelet Count 206 K/uL (130-400); RDW Coefficient of Variation 13.3 % (11.5-14.5); RDW Standard Deviation 44.6 fL (36.4-46.3); Red Blood Count 5.72 M/uL (4.7-6.1); White Blood Count 9.39 K/uL (4.8-10.8)
--- NOTE | 2021-08-03 06:23 | Electrocardiogram Report ---
Test Reason : Blood Pressure : / mmHG Vent. Rate : 069 BPM Atrial Rate : 069 BPM P-R Int : 146 ms QRS Dur : 082 ms QT Int : 398 ms P-R-T Axes : 081 034 040 degrees QTc Int : 426 ms Poor data quality, interpretation may be adversely affected Sinus rhythm with marked sinus arrhythmia Otherwise normal ECG When compared with ECG of 10-MAR-2015 11:00, No significant change was found Confirmed by Percy Whipple ([id number]) on 08/03/2021 6:22:33 AM Referred By: REFERRED SELF Confirmed By:Percy Whipple
[2021-08-03 06:58] LABS: Albumin Level 3.5 gm/dl (3.4-5.0); BUN Creatinine Ratio 14.8 (10-20); Calcium 8.9 mg/dl (8.5-10.1); Creatinine Clr Calc Pharmacy 54.3 ml/min; Est GFR (African American) 69.5 ml/min; Potassium 3.7 mmol/L (3.5-5.1)
[2021-08-03 07:00] LABS: Albumin Globulin Ratio 0.9 (0.9-2); Bilirubin,Total 0.6 mg/dl (0.2-1); Total Protein 7.5 gm/dl (6.4-8.2)
[2021-08-03] MEDS: DUTASTERIDE: ORDER AWAITING ACTION SCH (09:09)
[2021-08-03] MEDS: CHOLECALCIFEROL 1,000 UNITS 25 MCG TAB PO SCH (09:11)
[2021-08-03] MEDS: NYSTATIN POWDER 15GM BTL EXT SCH (09:11)
[2021-08-03] MEDS: METOPROLOL SUCC 50MG EXT REL TAB PO SCH (09:11)
[2021-08-03] MEDS: CLINDAMYCIN HCL 150 MG CAP PO SCH ×2 (11:16→14:20)
--- NOTE | 2021-08-03 17:37 | Discharge Summary ---
Date of Service August 03, 2021 Admission HPI Per Admitting Provider The patient is an 81-year-old male with a past history of being BPH with LUTS, gross hematuria, nephrolithiasis, hypertension, and hyperlipidemia who presents to the emergency department with symptoms above. Work-up in the emergency department included negative bilateral lower extremity venous Dopplers for DVT. Laboratories in the emergency department were normal, including a normal urinalysis and negative COVID-19 test. Patient did receive daptomycin IV and ceftriaxone IV from the ED while still in the ED. Principal Diagnosis Suspect MRSA Open Wounds with Mild Surrounding Cellulitis Discharge Exam PHYSICAL EXAM General Appearance: WDWN in NAD who is A&O x 3 HEENT: Head is normocephalic/atraumatic; Hearing grossly intact; Mucous membranes moist Neck: Supple; Trachea midline; Neg JVD Heart: RRR with no M/G/R Lungs: CTA in all lung [place] bilaterally; Respirations unlabored; Neg accessory muscle use Abdomen: Soft, non-tender, non-distended; Positive BS x 4 quadrants Extremities: Capillary refill < 2 seconds; Neg cyanosis or edema Neurological: Speech clear; Gross motor/sensory function intact; Neg focal neurologic deficits Psychiatric: Appropriate mood/affect Skin: Scattered small scabbed lesions varying from a dime to a quarter mostly of bilateral legs (3-4 lesions) with on dime sized on R wrist; Superficial wounds of medial aspects of thighs with serous drainage; mild erythema of groin and upper thighs improving from previous assessment Discharge Data Allergies Allergy/AdvReac Type Severity Reaction Status Date / Time No Known Allergies Allergy Verified 08/01/21 22:59 Consultations 08/01/21 23:50 ED Decision to Admit Stat Ordered Studies Venous Doppler Study 08/01/21 23:24 US venous doppler LE BI CLINICAL HISTORY: eval DVT COMPARISON STUDY: No previous studies for comparison. FINDINGS: Real-time and color flow Doppler imaging were performed. Flow was seen within the bilateral femoral, popliteal and calf veins with no intraluminal thrombus demonstrated. The saphenous vein is patent. Multiple skin lesions in bilateral medial thigh reported by electroneurodiagnostic technician. IMPRESSION: No evidence of deep venous thrombosis in bilateral lower extremities. ACT 112: Negative or not required by law. The above report was generated using voice recognition software. It may contain grammatical, syntax or spelling errors. Electronically signed by: Carolyn Cortes DO 08/02/2021 8:27 AM Hospital Course (1) Bilateral cellulitis of lower leg: - Bilateral cellulitis of lower extremities/cellulitis of scrotum -- Reports sporadic pimple-like lesions that blister and he tends to pop them - no known H/O MRSA but seems convincing -- Does not look like a contact dermatitis or specifically like bites; maybe a fungal component from the groin but even satellite lesions from fungal infections are not completely consistent -- States he did change to new adult depends so maybe some irritation in the groin however again doesn't really reflect a contact dermatitis - Used Dapto and Ceftriaxone in-house; Will covert to Zyvox BID x 7 additional days given possibility of MRSA -- Patient is non-toxic and hemodynamically stable - Nystatin to groin - Wound care followed and instructions given - if wound do not close in 1-2 weeks will need wound care follow-up -- Optafoam dressing and change every other day or as needed for saturation - Superficial wound culture - gram stain without organisms and only pin-point growth and unable to identified specific organism (2) Cellulitis of scrotum: - See above (3) Benign prostatic hyperplasia with urinary obstruction: - Continue dutasteride (4) Hypercholesterolemia: - Continue rosuvastatin 20 mg at bedtime (5) Hypertension: - Continue aspirin, lisinopril, and metoprolol succinate (6) GERD (gastroesophageal reflux disease): - Continue omeprazole/pantoprazole - Patient is afebrile and hemodynamically stable - Complete Abx course - Patient recently moved to this area from [place] - plans to follow-up with PCP in [place] but may change PCP given new location Total Time Total Time Spent Total Time Spent (In Minutes): Spent greater than 30 minutes preparing patient for discharge. This includes discussion with patient/family, assessment, intervention, medication reconciliation, and coordination of care. Discharge Plan Discharge Items Patient Disposition: Home - Self-Care Reason For Visit: B/L LE CELLULITIS Discharge Diagnosis: Bilateral Lower Extremity Cellulitis Activity: Resume your previous activity Non-emergency contact: Primary Care Provider Call non-emergency contact if: you have any medication questions, your symptoms worsen and you have a fever Follow-up/Referrals: René Malik MD [Primary Care Provider] - (Recommend within 7-10 days) Diet: Regular Addtl Attending Provider Instructions: Cellulitis (Skin Infection) of Lower Legs and Groin: - Currently your culture does not reveal organisms to help identify the infection. We will keep an eye on this culture for any new growth. - We will cover empirically for MRSA - methicillin-resistant staphylococcus aureus. Staphylococcus aureus is normal bacteria that can be found on our skin. Sometimes the skin can be compromised and this allows infection to grow. MRSA is when this bacteria is resistant to methicillin antibiotics and therefore we need to use different kinds. - Given that these started as small pimples that blistered - it makes us wonder if this is MRSA. Many people have MRSA on their skin and given the right opportunity it can cause infection. - We will cover you with antibiotics for this -- Take Zyvox 600 mg twice a day for 7 days. You can start this when you return home from the hospital -- Would recommend picking up some over the counter probiotics. Any brand would be sufficient. This will help keep good bacteria in the GI tract while on antibiotics. You can also eat yogurt if you like that. -- If you develop abdominal pain. fever, or significant diarrhea please see your doctor or go to the ER. Being on antibiotics can cause you to get an infectious diarrhea called clostridium difficile and would need to get treatment for this if it should occur. - There may also be a component of fungal infection and would recommend to use an anti-fungal cream or powder in the groin region. Do not put this on the open wounds. - The wound care nurse would like you to use dressings over the open wounds called Optifoam. We can send some home with you but more can be picked up over the counter or at medical supply stores. Change every other day or if there is a lot of drainage on the dressing - If the open wounds do not close in 1-2 weeks the wound care center would like you to call them and make an appointment at [phone] - No soaking in baths. Showers only and would recommend unscented gentle soap to clean your legs to avoid the perfumes in the soap from irritating you. - If you continue with adult depend briefs, make sure to change these if they are wet or soiled to prevent further irritation Home Medications: - You may continue your home medications as previously prescribed as we did not make changes to these. Pending Studies at Discharge: Yes Stand-Alone Forms: My [facility], Smoking Cessation Medications and DC Order Prescriptions: New nystatin 100,000 unit/gram ointment 1 applic topical BID 14 Days Qty: 15 RF: 1 Continued lisinopril 20 mg Tablet 20 mg PO QPM RF: 0 metoprolol succinate 100 mg Tablet Extended Release 24 Hr 100 mg PO QAM RF: 0 cholecalciferol (vitamin D3) [Vitamin D3] 25 mcg (1,000 unit) Capsule 25 mcg PO QAM RF: 0 dutasteride [Avodart] 0.5 mg Capsule 0.5 mg PO QPM RF: 0 rosuvastatin [Crestor] 20 mg Tablet 20 mg PO QPM RF: 0 aspirin 81 mg Tablet,Delayed Release (Dr/Ec) 162 mg PO QPM RF: 0 glucosamine-chondroitin [Osteo Bi-Flex] 250-200 mg Tablet 1 tab PO QPM RF: 0 omeprazole magnesium [Prilosec OTC] 20 mg Tablet,Delayed Release (Dr/Ec) 20 mg PO DAILY RF: 0 No Action cefdinir 300 mg capsule 300 mg PO BID 10 Days Qty: 20 RF: 0 Discharge Orders: Discharge Order (Routine); Ordered 08/03/21 Ordered By: Rosalina Bravo/Other Patient Handouts: Discharge Instructions for Cellulitis, ED Cellulitis Admission Data Admit Date/Time: 08/01/21 23:56 Attending Provider: Meet Howe Admit Provider: Bryan Dorado Primary Care Provider: René Malik Other Providers: Bryan Dorado Other Interventions: Discharge Summary Assessment (RN) Last Done: 08/03/21 14:25 Supervising Physician Co-Signing Physician Notes Attending note: patient seen and examined with Rosalina Ruiz PA-C. I agree with her discharge summary. I personally reviewed the labs and imaging findings. patient responded quickly to IV antibiotics, specifically Daptomycin, suspected MRSA infection given h/o pimple like lesions that open then cellulitis eating well, no fever, breathing comfortably, wants to go home - Bilateral lower extremity cellulitis, suspect MRSA: superficial culture only with pinpoint growth, could not ID organism discharge on Zyvox x 7 days - Tinea cruris: nystatin powder as prescribed follow up with PCP Coding Level of Care Code D/C DAY MANAGEMENT >30 MINS Diagnoses Bilateral cellulitis of lower leg L03.116; L03.115 Cellulitis of scrotum N49.2 Benign prostatic hyperplasia with urinary obstruction N40.1; N13.8 Hypercholesterolemia E78.00 Hypertension I10 GERD (gastroesophageal reflux disease) K21.9
[2021-08-04] MEDS ORDERED: FINASTERIDE 5 MG TAB PO SCH (09:00)
== END 2021-08-03 15:05 | disposition home or self-care (01) | DRG 603 ==
LOC: ED 17:45 → SUATTDRO 23:56 → 3N 23:56

== ENCOUNTER 2022-04-17 14:35 | Observation (INO) ==
--- NOTE | 2022-04-17 15:29 | Emergency Department Note ---
History of Present Illness General Chief complaint: Stroke/CVA Symptoms Stated complaint: STROKE SYMPTOMS, SENT BY DR Rhodes Seen by Provider: 04/17/22 15:23 Source: patient Mode of arrival: ambulatory Limitations: no limitations History of Present Illness TIA last May - resolved, saw PCP and started asa sister called last - pt had slurred speech, trouble thinking - not super unusual, she checked on him and he was fine this am - didn't recognize daughter at first, eye drooped, left sided facial droop, speech slurred gait fine, PT checked and did therapy improved around lunchtime few hours of symptoms, very gradually resolved Home Medications Medication Instructions Recorded Confirmed Type aspirin 81 mg tablet,delayed 162 mg PO QPM 06/24/21 04/17/22 History release cholecalciferol (vitamin D3) 25 25 mcg PO QAM 06/24/21 04/17/22 History mcg (1,000 unit) capsule (Vitamin D3) glucosamine-chondroitin 250 mg-200 1 tab PO QPM 06/24/21 04/17/22 History mg tablet (Osteo Bi-Flex) omeprazole magnesium 20 mg 20 mg PO DAILY 06/24/21 04/17/22 History tablet,delayed release (Prilosec OTC) rosuvastatin 20 mg tablet (Crestor) 20 mg PO QPM 06/24/21 04/17/22 History clobetasol 0.05 % topical ointment 1 applic TOPICAL DIRECTED PRN 02/21/22 04/17/22 History doxycycline hyclate 100 mg tablet 100 mg PO BID #60 tab 02/21/22 04/17/22 Rx dutasteride 0.5 mg capsule 0.5 mg PO QPM 02/21/22 04/17/22 History (Avodart) irbesartan 75 mg tablet 75 mg PO DAILY 04/17/22 04/17/22 History metoprolol tartrate 100 mg tablet 100 mg PO BID 04/17/22 04/17/22 History Allergies Allergy/AdvReac Type Severity Reaction Status Date / Time lisinopril AdvReac Intermediate Cough Verified 04/17/22 16:53 Past Med/Surg History Medical History (Updated 04/17/22 @ 18:24 by ORLIN Ellington) Bilateral cellulitis of lower leg BPH (benign prostatic hyperplasia) CAD (coronary artery disease) Cellulitis of scrotum Deep vein thrombosis RT LEG (4 YEARS AGO/? REASON) GERD (gastroesophageal reflux disease) Hearing deficit History of bladder stone History of kidney stones History of skin cancer Hypercholesterolemia Hypertension Myocardial Infarction 10 YEARS AGO Nephrolithiasis Pulmonary embolism 4 YEARS AGO ? REASON Reactive airway disease NO INHALER TIA (transient ischemic attack) MAY 20, 2021>SYMPTOMS RESOLVED/NO DEFECITS Surgical History H/O eye surgery LEFT EYE LASER SURGERY History of anesthesia reaction History of colonoscopy History of cystoscopy History of heart artery stent 2 STENTS PLACED ([facility]/10 YEARS AGO) History of lithotripsy History of tooth extraction Family History Father History of parotid cancer Prostate cancer Cardiac disorder Mother Diabetes Cardiac disorder Brother Prostate cancer Kidney stones Other No family history of adverse response to anesthesia Social History Smoking Status: Never smoker Second Hand Exposure: No; Hx Alcohol Use: No Hx Substance Use: No Preferred Language: Irish Communication Ability: Effective Senior Advisor Required: No Beliefs That Will Affect Care: None marital status: / Current Living Situation: Alone Current Living Situation Comment: lives in [facility] current occupational status: retired Feels Safe at Home: Yes Assistive Devices: Cane Review of Systems A total of 10 systems reviewed and were otherwise negative Physical Exam Vital Signs Vital Signs - 24 hr 04/17/22 14:36 04/17/22 14:42 Temperature 36.5 C Temperature Source Temporal Artery Scan Pulse Rate 70 Respiratory Rate 18 Respiratory Effort / Characteristics Non-Labored Respiratory Depth Normal Respiratory Pattern Regular Blood Pressure 159/91 H Blood Pressure Mean 113 Pulse Oximetry 94 Oxygen Delivery Method Room Air Room Air Sepsis Recent Fever Within 48 Hours No Sepsis New/Unexplained Change in Mental Status No Sepsis Action Taken by Nursing No Action Required Course Administered Medications Doxycycline Hyclate (Doxycycline Hyclate 100 Mg Cap) 100 mg PO BID [facility] Stop: 05/17/22 20:59 Last Admin: 04/17/22 22:23 Dose: 100 mg Documented by: [id number] Finasteride (Finasteride 5 Mg Tab) 5 mg PO QPM [facility]; Protocol Stop: 05/17/22 20:59 Last Admin: 04/17/22 22:22 Dose: 5 mg Documented by: [id number] Heparin Sodium (Porcine) (Heparin Sod 5,000 Unit/0.5 Ml Vial) 5,000 units SQ Q12 [facility] Stop: 05/17/22 20:59 Last Admin: 04/17/22 22:24 Dose: 5,000 units Documented by: [id number] Metoprolol Tartrate (Metoprolol Tartrate 100 Mg Tab) 100 mg PO BID [facility] Stop: 05/17/22 20:59 Last Admin: 04/17/22 20:55 Dose: 100 mg Documented by: [id number] Pantoprazole Sodium (Pantoprazole 40 Mg Tab) 40 mg PO DAILY [facility]; Protocol Stop: 05/18/22 08:59 Last Admin: 04/17/22 22:22 Dose: 40 mg Documented by: [id number] Rosuvastatin Calcium (Rosuvastatin Calcium 20 Mg Tab) 20 mg PO QPM [facility] Stop: 05/17/22 20:59 Last Admin: 04/17/22 20:55 Dose: 20 mg Documented by: [id number] Discontinued Medications Aspirin (Aspirin 81 Mg Chew) 162 mg PO NOW STA Stop: 04/17/22 18:35 Last Admin: 04/17/22 22:20 Dose: 162 mg Documented by: [id number] Ioversol (Optiray 320 125ml) 119 ml IV ONCE ONE Stop: 04/17/22 17:19 Last Admin: 04/17/22 17:18 Dose: 119 ml Documented by: [id number] Medical Decision Making Laboratory Data Result diagrams: 04/17/22 15:15 04/17/22 15:15 Lab Results 04/17/22 04/17/22 04/17/22 Range/Units 15:15 15:15 15:15 WBC 7.61 (4.8-10.8) K/uL RBC 5.57 (4.7-6.1) M/uL Hgb 16.7 (14.0-18.0) g/dL Hct 48.5 (42-52) % MCV 87.1 (80-100) fL MCH 30.0 (25-34) pg MCHC 34.4 (32-36) g/dL RDW Std Deviation 44.1 (36.4-46.3) fL RDW Coeff of Kateryna 13.9 (11.5-14.5) % Plt Count 182 (130-400) K/uL MPV 10.6 H (7.4-10.4) fL PT 12.0 (9.0-12.0) Seconds INR 1.1 (0.9-1.1) APTT 25.2 (21.0-31.0) Seconds PTT Ratio 0.9 Sodium 138 (136-145) mmol/L Potassium 3.9 (3.5-5.1) mmol/L Chloride 103 (98-107) mmol/L Carbon Dioxide 30 (21-32) mmol/L Anion Gap 5 (3-11) BUN 15 (6-23) mg/dl Creatinine 1.26 (0.6-1.4) mg/dl Est Cr Clr Drug Dosing 47.5 ml/min Est GFR ( Amer) 61.2 ml/min Est GFR (Non-Af Amer) 52.8 ml/min BUN/Creatinine Ratio 11.9 (10-20) Glucose 98 (70-99(Fasting)) mg/dl Calcium 9.2 (8.5-10.1) mg/dl Magnesium 2.0 (1.7-2.4) mg/dl Total Bilirubin 1.0 (0.2-1.0) mg/dl AST 19 (13-39) U/L ALT 14 (7-52) U/L Alkaline Phosphatase 83 (34-104) U/L Total Protein 6.6 (6.0-8.3) gm/dl Albumin 4.1 (3.4-5.0) gm/dl Globulin 2.5 (2.5-4.0) gm/dl Albumin/Globulin Ratio 1.6 (0.9-2) Imaging Data Radiologist's Impression: Head CT 04/17/22 14:47 CT head/brain wo con CLINICAL HISTORY: Stroke Alert Technique: Contiguous axial CT images of the head were acquired from the base of the skull to the vertex without intravenous contrast administration. Images were viewed in brain, subdural and bone windows. Automated dose lowering techniques and/or adjustment according to patient size were utilized for this exam. Comparison: None available at the time of this dictation. Findings: The ventricles, basal cisterns, and cerebral sulci are normal. There is no acute intracranial hemorrhage or evidence of acute territorial infarction. Neither mass effect, shift of the midline structures, nor abnormal extra-axial fluid collections are shown. Imaged portions of the paranasal sinuses and mastoid air cells are clear. The orbits appear normal. There are no acute fractures of the calvaria or scalp swelling. Impression: No acute intracranial hemorrhage, no evidence of acute territorial infarction or other acute intracranial disease process. ACT 112: Negative or not required by law. Electronically signed by: Meet Maguire M.D. 04/17/2022 3:33 PM Head CTA 04/17/22 16:52 CT ANGIOGRAM OF THE BRAIN; CT ANGIOGRAM OF THE NECK CLINICAL HISTORY: Slurred speech. Left-sided facial/eye droop. Stroke like symptoms. COMPARISON STUDY: Unenhanced CT of the brain performed earlier the same day 04/17/2022. TECHNIQUE: Following the IV administration of 119 of Optiray 320, CT angiogram of the head and neck was performed from the aortic arch to the vertex. Images are reviewed in the axial, sagittal, and coronal planes. 3-D MIPS images are created and assessed. IV contrast was administered without complication. All measurements were calculated based on NASCET criteria. A dose lowering technique was utilized adhering to the principles of ALARA. CT DOSE: 568.13 mGy.cm FINDINGS: Brain parenchyma: There is age-related involutional change noting moderate sub cortical and periventricular microangiopathic disease. There is no evidence of hemorrhage, mass effect, or acute territorial noting angiographic phase technique. There is no evidence of enhancing mass lesion on the angiogram phase images. The ventricles, sulci, and cisterns are prominent secondary to involutional change. Aldana-white matter differentiation is preserved. No extra- axial fluid collection is seen. Thoracic aorta: There is atherosclerotic calcification of the thoracic aorta. Visualized portions of the thoracic aorta are normal in caliber. The aortic arch demonstrates bovine variant anatomy. Right carotid arterial system: The right common carotid artery is widely patent, as are the right internal and external carotid arteries. Calcified plaque is noted in the carotid bulb. Left carotid arterial system: The left common carotid artery is widely patent, as are the left internal and external carotid arteries. Calcified plaque is noted in the carotid bulb. Vertebral arteries: The vertebral arteries are widely patent bilaterally noting a right-sided dominance. Subclavian arteries: Widely patent bilaterally. Intracranial vasculature: There is atherosclerotic calcification of the cavernous carotid and vertebral arteries. The internal carotid arteries are patent at the skull base, as are the anterior and middle cerebral arteries bilaterally. The vertebrobasilar system and posterior cerebral arteries are widely patent. The right vertebral artery is dominant. The distal left vertebral artery below the basilar is diminutive. There is origin of the left posterior cerebral artery. There is moderate focal stenosis of the left anterior cerebral artery seen on axial image #154. No aneurysm or focal vessel cut off is seen throughout the intracranial circulation. Jugular veins: Patent bilaterally. Dural sinuses: Patent. Lung apices: Partially visualized upper lobe lung parenchyma appears clear. Soft tissues: The visualized pharyngeal soft tissues are normal in appearance noting angiographic phase technique. The oropharyngeal airway appears widely patent. The thyroid gland is heterogeneous. The salivary glands are normal in appearance. No cervical lymphadenopathy is seen. Skeletal structures: The skeletal structures are osteopenic. The calvarium appears intact. The cervical spine is maintained noting multilevel spondylosis. No lytic or blastic lesion is seen. Orbits: The bony orbits are intact. Orbital contents are normal as visualized noting a right ocular lens implant. Sinuses and mastoids: There is trace mucosal thickening within the maxillary antra. The remaining paranasal sinuses are clear. The mastoid air cells are well pneumatized. IMPRESSION: 1. There is no evidence of hemorrhage, mass effect, or acute territorial ischemia noting angiographic phase technique. 2. 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 3. Otherwise unremarkable CT angiogram of the brain. 4. Unremarkable CT angiogram of the neck. ACT 112: Negative or not required by law. Electronically signed by: Jorge Gross M.D. 04/17/2022 5:38 PM Neck CTA 04/17/22 16:52 CT ANGIOGRAM OF THE BRAIN; CT ANGIOGRAM OF THE NECK CLINICAL HISTORY: Slurred speech. Left-sided facial/eye droop. Stroke like symptoms. COMPARISON STUDY: Unenhanced CT of the brain performed earlier the same day 04/17/2022. TECHNIQUE: Following the IV administration of 119 of Optiray 320, CT angiogram of the head and neck was performed from the aortic arch to the vertex. Images are reviewed in the axial, sagittal, and coronal planes. 3-D MIPS images are created and assessed. IV contrast was administered without complication. All measurements were calculated based on NASCET criteria. A dose lowering technique was utilized adhering to the principles of ALARA. CT DOSE: 568.13 mGy.cm FINDINGS: Brain parenchyma: There is age-related involutional change noting moderate s ubcortical and periventricular microangiopathic disease. There is no evidence of hemorrhage, mass effect, or acute territorial noting angiographic phase technique. There is no evidence of enhancing mass lesion on the angiogram phase images. The ventricles, sulci, and cisterns are prominent secondary to involutional change. Aldana-white matter differentiation is preserved. No extra- axial fluid collection is seen. Thoracic aorta: There is atherosclerotic calcification of the thoracic aorta. Visualized portions of the thoracic aorta are normal in caliber. The aortic arch demonstrates bovine variant anatomy. Right carotid arterial system: The right common carotid artery is widely patent, as are the right internal and external carotid arteries. Calcified plaque is noted in the carotid bulb. Left carotid arterial system: The left common carotid artery is widely patent, as are the left internal and external carotid arteries. Calcified plaque is noted in the carotid bulb. Vertebral arteries: The vertebral arteries are widely patent bilaterally noting a right-sided dominance. Subclavian arteries: Widely patent bilaterally. Intracranial vasculature: There is atherosclerotic calcification of the cavernous carotid and vertebral arteries. The internal carotid arteries are patent at the skull base, as are the anterior and middle cerebral arteries bilaterally. The vertebrobasilar system and posterior cerebral arteries are widely patent. The right vertebral artery is dominant. The distal left vertebral artery below the basilar is diminutive. There is origin of the left posterior cerebral artery. There is moderate focal stenosis of the left anterior cerebral artery seen on axial image #154. No aneurysm or focal vessel cut off is seen throughout the intracranial circulation. Jugular veins: Patent bilaterally. Dural sinuses: Patent. Lung apices: Partially visualized upper lobe lung parenchyma appears clear. Soft tissues: The visualized pharyngeal soft tissues are normal in appearance noting angiographic phase technique. The oropharyngeal airway appears widely patent. The thyroid gland is heterogeneous. The salivary glands are normal in appearance. No cervical lymphadenopathy is seen. Skeletal structures: The skeletal structures are osteopenic. The calvarium appears intact. The cervical spine is maintained noting multilevel spondylosis. No lytic or blastic lesion is seen. Orbits: The bony orbits are intact. Orbital contents are normal as visualized noting a right ocular lens implant. Sinuses and mastoids: There is trace mucosal thickening within the maxillary antra. The remaining paranasal sinuses are clear. The mastoid air cells are well pneumatized. IMPRESSION: 1. There is no evidence of hemorrhage, mass effect, or acute territorial ischemia noting angiographic phase technique. 2. 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 3. Otherwise unremarkable CT angiogram of the brain. 4. Unremarkable CT angiogram of the neck. ACT 112: Negative or not required by law. Electronically signed by: Jorge Gross M.D. 04/17/2022 5:38 PM Discharge Plan Visit Data Chief Complaint: Stroke/CVA Symptoms Stated Complaint: STROKE SYMPTOMS, SENT BY ED Provider: Jorge Sheridan ED Midlevel Provider: Shanon Mckeon Patient Disposition: Admitted As Inpatient Discharge Instructions Interventions: ED Discharge Assessment Last Done: 04/17/22 17:42
[2022-04-17 15:33] LABS: Hematocrit (blood only) 48.5 % (42-52); Hemoglobin 16.7 g/dL (14.0-18.0); Mean Corpuscular Hgb Conc 34.4 g/dL (32-36); Mean Corpuscular Volume 87.1 fL (80-100); Mean Platelet Volume 10.6 fL (7.4-10.4); Platelet Count 182 K/uL (130-400); RDW Coefficient of Variation 13.9 % (11.5-14.5); RDW Standard Deviation 44.1 fL (36.4-46.3); Red Blood Count 5.57 M/uL (4.7-6.1); White Blood Count 7.61 K/uL (4.8-10.8)
--- NOTE | 2022-04-17 15:37 | CT Scan Report ---
CT head/brain wo con CLINICAL HISTORY: Stroke Alert Technique: Contiguous axial CT images of the head were acquired from the base of the skull to the jaylyn vika without intravenous contrast administration. Images were viewed in brain, subdural and bone [facility]. Automated dose lowering techniques and/or adjustment according to patient size were utilized for this exam. Comparison: None available at the time of this dictation. Findings: The ventricles, basal cisterns, and cerebral sulci are normal. There is no acute intracranial hemorrh age or evidence of acute territorial infarction. Neither mass effect, shift of the midline structures , nor abnormal extra-axial fluid collections are shown. Imaged portions of the paranasal sinuses and mastoid air cells are clear. The orbits appear normal. There are no acute fractures of the calvaria or scalp swelling. Impression: No acute intracranial hemorrhage, no evidence of acute territorial infarction or other acute intracra nial disease process. ACT 112: Negative or not required by law. Electronically signed by: Meet Maguire M.D. 04/17/2022 3:33 PM
[2022-04-17 15:49] LABS: INR 1.1 (0.9-1.1); Partial Thromboplastin Ratio 0.9; Partial Thromboplastin Time 25.2 Seconds (21.0-31.0)
[2022-04-17 16:14] LABS: Albumin Globulin Ratio 1.6 (0.9-2); Albumin Level 4.1 gm/dl (3.4-5.0); BUN Creatinine Ratio 11.9 (10-20); Calcium 9.2 mg/dl (8.5-10.1); Creatinine Clr Calc Pharmacy 47.5 ml/min; Est GFR (African American) 61.2 ml/min; Est GFR (Non-African American) 52.8 ml/min; Globulin 2.5 gm/dl (2.5-4.0); Potassium 3.9 mmol/L (3.5-5.1); Total Protein 6.6 gm/dl (6.0-8.3)
--- NOTE | 2022-04-17 16:37 | Emergency Department Note ---
ED Visit Note I was consulted by the Advanced Practice Provider. I saw the patient personally and performed a substantive portion of the visit. This includes aspects of the HPI, MDM, diagnostic interpretations, and disposition/plan. The patient is currently asymptomatic. He has had a few stroke/TIA events in a short timeframe, hospitalization and a formal stroke work-up is warranted .
--- NOTE | 2022-04-17 17:12 | History & Physical Report ---
Date of Service April 17, 2022 Assessment & Plan (1) TIA (transient ischemic attack): Plan: TIA with symptom discovered by daughter ~ 10:30 am with resolution around 1230- 1300 - Neurologically intact at this time - CTA of the head and neck as above- notable for left anterior cerebral artery stenosis - MRI, ECHO with bubble study - GIve ASA now 162mg - dyspepsia with higher doses - Continue statin - likely could benefit from increase- eval with lipid panel in am - BP controlled - neurological evaluation - neurological evaluation (2) Benign prostatic hyperplasia with urinary obstruction: Plan: Continue with dutasteride- feels as symptoms are controlled (3) Hypertension: Plan: Continue with irbesartan, continue metoprolol 100mg PO BID (4) Hypercholesterolemia: Plan: As above eval in am for statin change or increase (5) CAD (coronary artery disease): Plan: CAD with history of stents ~ 10-12 years ago - Continue with ASA, Irbesartan, BB - Denies any CP or dyspnea (6) GERD (gastroesophageal reflux disease): Plan: Continue omeprazole History of Present Illness Primary Care Provider: Stevie Meade MD 82 YOM with medical history of: CAD, BPH, HTN, TIA(05/25), bullous pemphigus, Aortic Sclerosis, DVT, PA, previous smoker. Patient was brought to EMD today by his daughter for concenrs of slurred speech and left eye lid drooping. The daughter says she talked to him on the phone this morning around 10:30 AM prior to his Physical Therapy appointment, she thought his speech was "thick and slow". Patient drove himself to physical therapy and completed this (he is in process of getting rolling walker). His daughter went to check on him at physical therapy and the patient was already on his way home, she met him at his house, and noted that his speech was still slurring and his left eye was "a kayce le slit", they ate lunch and had a PCP appointment around 1300 today, where symptoms resolved. He was then sent to the EMD. The patient and the daughter do not endorse any other symptoms of associated weakness, difficulty swallowing, or headaches. The patient recalls that his speech seemed a little slower this morning, but really didn't talk to too many people today at PT. He feels he is back to baseline at this time. He had a previous TIA reportedly in 2020, where he did not want any medical evaluation- so he stayed home but did have an ECHO and Holter monitor performed at that time that was negative. Daughter reports that he presented at that time with amnesia like behavior and agitation. She reports that resolved over a few hours. The patient remains on 162mg of ASA at home and statin therapy. He does bump into things at home as well as falls, which is why he is at PT. Patient will be observed overnight, obtain CTA of head and neck, MRI, ECHO and lipid panel for medical optimization. Will have PT/OT evaluation COVID on admission is: NEGATIVE Allergies Allergy/AdvReac Type Severity Reaction Status Date / Time lisinopril AdvReac Intermediate Cough Verified 04/17/22 16:53 Home Medications Medication Instructions Recorded Confirmed Type aspirin 81 mg tablet,delayed 162 mg PO QPM 06/24/21 04/17/22 History release cholecalciferol (vitamin D3) 25 25 mcg PO QAM 06/24/21 04/17/22 History mcg (1,000 unit) capsule (Vitamin D3) glucosamine-chondroitin 250 mg-200 1 tab PO QPM 06/24/21 04/17/22 History mg tablet (Osteo Bi-Flex) omeprazole magnesium 20 mg 20 mg PO DAILY 06/24/21 04/17/22 History tablet,delayed release (Prilosec OTC) rosuvastatin 20 mg tablet (Crestor) 20 mg PO QPM 06/24/21 04/17/22 History clobetasol 0.05 % topical ointment 1 applic TOPICAL DIRECTED PRN 02/21/22 04/17/22 History doxycycline hyclate 100 mg tablet 100 mg PO BID #60 tab 02/21/22 04/17/22 Rx dutasteride 0.5 mg capsule 0.5 mg PO QPM 02/21/22 04/17/22 History (Avodart) irbesartan 75 mg tablet 75 mg PO DAILY 04/17/22 04/17/22 History metoprolol tartrate 100 mg tablet 100 mg PO BID 04/17/22 04/17/22 History clopidogrel 75 mg tablet 75 mg PO DAILY #30 tab 04/18/22 Rx Past Med/Surg History Medical History (Updated 04/17/22 @ 18:24 by ORLIN Ellington) Bilateral cellulitis of lower leg BPH (benign prostatic hyperplasia) CAD (coronary artery disease) Cellulitis of scrotum Deep vein thrombosis RT LEG (4 YEARS AGO/? REASON) GERD (gastroesophageal reflux disease) Hearing deficit History of bladder stone History of kidney stones History of skin cancer Hypercholesterolemia Hypertension Myocardial Infarction 10 YEARS AGO Nephrolithiasis Pulmonary embolism 4 YEARS AGO ? REASON Reactive airway disease NO INHALER TIA (transient ischemic attack) MAY 20, 2021>SYMPTOMS RESOLVED/NO DEFECITS Surgical History H/O eye surgery LEFT EYE LASER SURGERY History of anesthesia reaction History of colonoscopy History of cystoscopy History of heart artery stent 2 STENTS PLACED ([facility]/10 YEARS AGO) History of lithotripsy History of tooth extraction Family History Father History of parotid cancer Prostate cancer Cardiac disorder Mother Diabetes Cardiac disorder Brother Prostate cancer Kidney stones Other No family history of adverse response to anesthesia Social History Smoking Status: Former smoker Second Hand Exposure: No; Hx Alcohol Use: No Hx Substance Use: No Preferred Language: Greek Communication Ability: Effective Time Study Technologist Required: No Beliefs That Will Affect Care: None marital status: / Current Living Situation: Alone Current Living Situation Comment: lives in [facility] current occupational status: retired Other Information That Helps Us Care for You: No Feels Safe at Home: Yes Safety Concerns: Feels Safe At This Time Assistive Devices: Cane and Glasses Review of Systems Review of Systems: REVIEW OF SYSTEMS: Constitutional: No fever, sweats or chills Eyes: No diplopia, no worsening or blurred vision ENT: (+) wears hearing aids, no trouble swallowing Respiratory: No cough, sputum, dyspnea at rest or on exertion Cardiovascular: No chest pain, tightness or palpitations Abdomen: No pain, nausea, vomiting, diarrhea or constipation Musculoskeletal: (+) falls, off balance, Neurologic: (+) walks with cane, No weakness, numbness/tingling, Psychiatric: No anxiety or depression Skin: No rash or itch Physical Exam Physical Exam: PHYSICAL EXAM: General: awake, alert, no apparent distress Head: Normocephalic, atraumatic ENT: PERRLA, EOMI, no pharyngeal exudate, mucous membranes moist Neuro: AAO x 3, speech clear and appropriate, strength intact bilaterally 5/5, sensation intact and equal all extremities and dermatomes, no pronator drift, no facial asymmetry, tongue midline, peripheral vision intact, no dysarthria, no aphasia Chest: equal rise and fall of the chest, no accessory muscle use, no heaves or thrills, Clear to auscultation, on room air, Cardiac: Regular rate and rhythm, telemetry reviewed, skin warm dry, cap refill <3 seconds, peripheral pules +2 no JVD, no murmur, no edema GI: NABS x 4 quadrants, soft, nontender to palpation, no rebound, guarding or tenderness : Spontaneously voiding, no pain, no CVA tenderness, Extremities: Normal inspection, no peripheral edema or erythema, calfs nontender to palpation Psych: Normal mood and affect Skin: no rash or erythema Results & Data Results & Data ([facility]) Vital Signs (Past 12 Hours) Vital Signs Temp Pulse Resp BP Pulse Ox 04/17/22 14:42 36.5 C 70 18 159/91 H 94 Laboratory Results Laboratory Results - last 24 hr 04/17/22 04/17/22 04/17/22 15:15 15:15 15:15 WBC 7.61 RBC 5.57 Hgb 16.7 Hct 48.5 MCV 87.1 MCH 30.0 MCHC 34.4 RDW Std Deviation 44.1 RDW Coeff of Kateryna 13.9 Plt Count 182 MPV 10.6 H PT 12.0 INR 1.1 APTT 25.2 PTT Ratio 0.9 Sodium 138 Potassium 3.9 Chloride 103 Carbon Dioxide 30 Anion Gap 5 BUN 15 Creatinine 1.26 Est Cr Clr Drug Dosing 47.5 Est GFR ( Amer) 61.2 Est GFR (Non-Af Amer) 52.8 BUN/Creatinine Ratio 11.9 Glucose 98 Calcium 9.2 Magnesium 2.0 Total Bilirubin 1.0 AST 19 ALT 14 Alkaline Phosphatase 83 Total Protein 6.6 Albumin 4.1 Globulin 2.5 Albumin/Globulin Ratio 1.6 SARS-CoV-2, RNA, NAAT 04/17/22 Unknown WBC RBC Hgb Hct MCV MCH MCHC RDW Std Deviation RDW Coeff of Kateryna Plt Count MPV PT INR APTT PTT Ratio Sodium Potassium Chloride Carbon Dioxide Anion Gap BUN Creatinine Est Cr Clr Drug Dosing Est GFR ( Amer) Est GFR (Non-Af Amer) BUN/Creatinine Ratio Glucose Calcium Magnesium Total Bilirubin AST ALT Alkaline Phosphatase Total Protein Albumin Globulin Albumin/Globulin Ratio SARS-CoV-2, RNA, NAAT NEGATIVE Diagnostic Findings Head CT 04/17/22 14:47 CT head/brain wo con CLINICAL HISTORY: Stroke Alert Technique: Contiguous axial CT images of the head were acquired from the base of the skull to the vertex without intravenous contrast administration. Images were viewed in brain, subdural and bone windows. Automated dose lowering techniques and/or adjustment according to patient size were utilized for this exam. Comparison: None available at the time of this dictation. Findings: The ventricles, basal cisterns, and cerebral sulci are normal. There is no acute intracranial hemorrhage or evidence of acute territorial infarction. Neither mass effect, shift of the midline structures, nor abnormal extra-axial fluid collections are shown. Imaged portions of the paranasal sinuses and mastoid air cells are clear. The orbits appear normal. There are no acute fractures of the calvaria or scalp swelling. Impression: No acute intracranial hemorrhage, no evidence of acute territorial infarction or other acute intracranial disease process. ACT 112: Negative or not required by law. Electronically signed by: Meet Maguire M.D. 04/17/2022 3:33 PM Head CTA 04/17/22 16:52 CT ANGIOGRAM OF THE BRAIN; CT ANGIOGRAM OF THE NECK CLINICAL HISTORY: Slurred speech. Left-sided facial/eye droop. Stroke like symptoms. COMPARISON STUDY: Unenhanced CT of the brain performed earlier the same day 04/17/2022. TECHNIQUE: Following the IV administration of 119 of Optiray 320, CT angiogram of the head and neck was performed from the aortic arch to the vertex. Images are reviewed in the axial, sagittal, and coronal planes. 3-D MIPS images are created and assessed. IV contrast was administered without complication. All measurements were calculated based on NASCET criteria. A dose lowering technique was utilized adhering to the principles of ALARA. CT DOSE: 568.13 mGy.cm FINDINGS: Brain parenchyma: There is age-related involutional change noting moderate subcortical and periventricular microangiopathic disease. There is no evidence of hemorrhage, mass effect, or acute territorial noting angiographic phase technique. There is no evidence of enhancing mass lesion on the angiogram phase images. The ventricles, sulci, and cisterns are prominent secondary to involutional change. Aldana-white matter differentiation is preserved. No extra- axial fluid collection is seen. Thoracic aorta: There is atherosclerotic calcification of the thoracic aorta. Visualized portions of the thoracic aorta are normal in caliber. The aortic arch demonstrates bovine variant anatomy. Right carotid arterial system: The right common carotid artery is widely patent, as are the right internal and external carotid arteries. Calcified plaque is noted in the carotid bulb. Left carotid arterial system: The left common carotid artery is widely patent, as are the left internal and external carotid arteries. Calcified plaque is noted in the carotid bulb. Vertebral arteries: The vertebral arteries are widely patent bilaterally noting a right-sided dominance. Subclavian arteries: Widely patent bilaterally. Intracranial vasculature: There is atherosclerotic calcification of the cavernous carotid and vertebral arteries. The internal carotid arteries are patent at the skull base, as are the anterior and middle cerebral arteries bilaterally. The vertebrobasilar system and posterior cerebral arteries are widely patent. The right vertebral artery is dominant. The distal left vertebral artery below the basilar is diminutive. There is origin of the left posterior cerebral artery. There is moderate focal stenosis of the left anterior cerebral artery seen on axial image #154. No aneurysm or focal vessel cut off is seen throughout the intracranial circulation. Jugular veins: Patent bilaterally. Dural sinuses: Patent. Lung apices: Partially visualized upper lobe lung parenchyma appears clear. Soft tissues: The visualized pharyngeal soft tissues are normal in appearance noting angiographic phase technique. The oropharyngeal airway appears widely patent. The thyroid gland is heterogeneous. The salivary glands are normal in appearance. No cervical lymphadenopathy is seen. Skeletal structures: The skeletal structures are osteopenic. The calvarium appears intact. The cervical spine is maintained noting multilevel spondylosis. No lytic or blastic lesion is seen. Orbits: The bony orbits are intact. Orbital contents are normal as visualized noting a right ocular lens implant. Sinuses and mastoids: There is trace mucosal thickening within the maxillary antra. The remaining paranasal sinuses are clear. The mastoid air cells are well pneumatized. IMPRESSION: 1. There is no evidence of hemorrhage, mass effect, or acute territorial ischemia noting angiographic phase technique. 2. 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 3. Otherwise unremarkable CT angiogram of the brain. 4. Unremarkable CT angiogram of the neck. ACT 112: Negative or not required by law. Electronically signed by: Jorge Gross M.D. 04/17/2022 5:38 PM Neck CTA 04/17/22 16:52 CT ANGIOGRAM OF THE BRAIN; CT ANGIOGRAM OF THE NECK CLINICAL HISTORY: Slurred speech. Left-sided facial/eye droop. Stroke like symptoms. COMPARISON STUDY: Unenhanced CT of the brain performed earlier the same day 04/17/2022. TECHNIQUE: Following the IV administration of 119 of Optiray 320, CT angiogram of the head and neck was performed from the aortic arch to the vertex. Images are reviewed in the axial, sagittal, and coronal planes. 3-D MIPS images are created and assessed. IV contrast was administered without complication. All measurements were calculated based on NASCET criteria. A dose lowering technique was utilized adhering to the principles of ALARA. CT DOSE: 568.13 mGy.cm FINDINGS: Brain parenchyma: There is age-related involutional change noting moderate subcortical and periventricular microangiopathic disease. There is no evidence of hemorrhage, mass effect, or acute territorial noting angiographic phase tech nique. There is no evidence of enhancing mass lesion on the angiogram phase images. The ventricles, sulci, and cisterns are prominent secondary to involutional change. Aldana-white matter differentiation is preserved. No extra- axial fluid collection is seen. Thoracic aorta: There is atherosclerotic calcification of the thoracic aorta. Visualized portions of the thoracic aorta are normal in caliber. The aortic arch demonstrates bovine variant anatomy. Right carotid arterial system: The right common carotid artery is widely patent, as are the right internal and external carotid arteries. Calcified plaque is noted in the carotid bulb. Left carotid arterial system: The left common carotid artery is widely patent, as are the left internal and external carotid arteries. Calcified plaque is n oted in the carotid bulb. Vertebral arteries: The vertebral arteries are widely patent bilaterally noting a right-sided dominance. Subclavian arteries: Widely patent bilaterally. Intracranial vasculature: There is atherosclerotic calcification of the cavernous carotid and vertebral arteries. The internal carotid arteries are patent at the skull base, as are the anterior and middle cerebral arteries bilaterally. The vertebrobasilar system and posterior cerebral arteries are widely patent. The right vertebral artery is dominant. The distal left vertebral artery below the basilar is diminutive. There is origin of the left posterior cerebral artery. There is moderate focal stenosis of the left anterior cerebral artery seen on axial image #154. No aneurysm or focal vessel cut off is seen throughout the intracranial circulation. Jugular veins: Patent bilaterally. Dural sinuses: Patent. Lung apices: Partially visualized upper lobe lung parenchyma appears clear. Soft tissues: The visualized pharyngeal soft tissues are normal in appearance noting angiographic phase technique. The oropharyngeal airway appears widely patent. The thyroid gland is heterogeneous. The salivary glands are normal in appearance. No cervical lymphadenopathy is seen. Skeletal structures: The skeletal structures are osteopenic. The calvarium appears intact. The cervical spine is maintained noting multilevel spondylosis. No lytic or blastic lesion is seen. Orbits: The bony orbits are intact. Orbital contents are normal as visualized noting a right ocular lens implant. Sinuses and mastoids: There is trace mucosal thickening within the maxillary antra. The remaining paranasal sinuses are clear. The mastoid air cells are well pneumatized. IMPRESSION: 1. There is no evidence of hemorrhage, mass effect, or acute territorial ischemia noting angiographic phase technique. 2. 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 3. Otherwise unremarkable CT angiogram of the brain. 4. Unremarkable CT angiogram of the neck. ACT 112: Negative or not required by law. Electronically signed by: Jorge Gross M.D. 04/17/2022 5:38 PM Medications Administered Home Medications aspirin 81 mg tablet,delayed release 162 mg PO QPM 06/24/21 [History Confirmed 04/17/22] cholecalciferol (vitamin D3) 25 mcg (1,000 unit) capsule (Vitamin D3) 25 mcg PO QAM 06/24/21 [History Confirmed 04/17/22] glucosamine-chondroitin 250 mg-200 mg tablet (Osteo Bi-Flex) 1 tab PO QPM 06/24/21 [History Confirmed 04/17/22] omeprazole magnesium 20 mg tablet,delayed release (Prilosec OTC) 20 mg PO DAILY 06/24/21 [History Confirmed 04/17/22] rosuvastatin 20 mg tablet (Crestor) 20 mg PO QPM 06/24/21 [History Confirmed 04/17/22] clobetasol 0.05 % topical ointment 1 applic TOPICAL DIRECTED PRN 02/21/22 [History Confirmed 04/17/22] doxycycline hyclate 100 mg tablet 100 mg PO BID #60 tab 02/21/22 [Rx Confirmed 04/17/22] dutasteride 0.5 mg capsule (Avodart) 0.5 mg PO QPM 02/21/22 [History Confirmed 04/17/22] irbesartan 75 mg tablet 75 mg PO DAILY 04/17/22 [History Confirmed 04/17/22] metoprolol tartrate 100 mg tablet 100 mg PO BID 04/17/22 [History Confirmed 04/17/22] Discontinued Medications Ioversol (Optiray 320 125ml) 119 ml IV ONCE ONE Stop: 04/17/22 17:19 Last Admin: 04/17/22 17:18 Dose: 119 ml Documented by: [id number] ECG Additional Comments: Normal sinus rhythm with sinus arrhythmia Right bundle branch block Possible Inferior infarct , age undetermined Abnormal ECG When compared with ECG of 01-AUG-2021 20:36, Right bundle branch block is now Present Code Status & VTE Plan Code Status CODE: DNR/DNI VTE: SCDS, ASA, Heparin 5000units sub q q12 VTE Prophylaxis Plan VTE Prophylaxis will be ordered: Yes Supervising Physician Co-Signing Physician Notes I personally saw and examined the patient. I verified all lewis points and agree with ORLIN Burnette with the following exceptions and/or additions: 82 year old male admission due to recurrent episodes of slurred speech and left eye dropping. Patient seen without his daughter who was present earlier in the ER. He denies realizing there was any problem and was only noticed by her daughter. O/E No expressive or receptive dysphasia, mild left eyelid droop, Chest CTAB, HS 1+2, no murmurs, Abdo SNT, no focal extremity weakness, pronator drift A/P Possible TIA - CTA moderate stenosis in left anterior cerebral artery, MRI brain w/o contrast pending. TTE. Lipid panel and HbA1C. PG Care Time/CCT Total # of Minutes Spent Total Time Spent with Patient: Total time spent is greater than 50% in coordination of care (as documented) at patient's floor/unit and/or counseling patient: Coding Level of Care Code INT OBSERVATION CARE 70M LVL 3 Diagnoses TIA (transient ischemic attack) G45.9 Benign prostatic hyperplasia with urinary obstruction N40.1; N13.8 Hypertension I10 Hypercholesterolemia E78.00 CAD (coronary artery disease) I25.10 GERD (gastroesophageal reflux disease) K21.9
[2022-04-17] MEDS ORDERED: OPTIRAY 320 125ml IV ONE (17:18)
--- NOTE | 2022-04-17 17:40 | CT Scan Report ---
CT ANGIOGRAM OF THE BRAIN; CT ANGIOGRAM OF THE NECK CLINICAL HISTORY: Slurred speech. Left-sided facial/eye droop. Stroke like symptoms. COMPARISON STUDY: Unenhanced CT of the brain performed earlier the same day 04/17/2022. TECHNIQUE: Following the IV administration of 119 of Optiray 320, CT angiogram of the head and neck w as performed from the aortic arch to the vertex. Images are reviewed in the axial, sagittal, and coty nal planes. 3-D MIPS images are created and assessed. IV contrast was administered without complicati on. All measurements were calculated based on NASCET criteria. A dose lowering technique was utilize d adhering to the principles of ALARA. CT DOSE: 568.13 mGy.cm FINDINGS: Brain parenchyma: There is age-related involutional change noting moderate subcortical and periventri cular microangiopathic disease. There is no evidence of hemorrhage, mass effect, or acute territorial noting angiographic phase technique. There is no evidence of enhancing mass lesion on the angiogram phase images. The ventricles, sulci, and cisterns are prominent secondary to involutional change. Gra y-white matter differentiation is preserved. No extra-axial fluid collection is seen. Thoracic aorta: There is atherosclerotic calcification of the thoracic aorta. Visualized portions of the thoracic aorta are normal in caliber. The aortic arch demonstrates bovine variant anatomy. Right carotid arterial system: The right common carotid artery is widely patent, as are the right int ernal and external carotid arteries. Calcified plaque is noted in the carotid bulb. Left carotid arterial system: The left common carotid artery is widely patent, as are the left music internship al and external carotid arteries. Calcified plaque is noted in the carotid bulb. Vertebral arteries: The vertebral arteries are widely patent bilaterally noting a right-sided dominan ce. Subclavian arteries: Widely patent bilaterally. Intracranial vasculature: There is atherosclerotic calcification of the cavernous carotid and vertebr al arteries. The internal carotid arteries are patent at the skull base, as are the anterior and midd le cerebral arteries bilaterally. The vertebrobasilar system and posterior cerebral arteries are wide ly patent. The right vertebral artery is dominant. The distal left vertebral artery below the basilar is diminutive. There is origin of the left posterior cerebral artery. There is moderate focal stenosis of the left anterior cerebral artery seen on axial image #154. No aneurysm or focal vessel c ut off is seen throughout the intracranial circulation. Jugular veins: Patent bilaterally. Dural sinuses: Patent. Lung apices: Partially visualized upper lobe lung parenchyma appears clear. Soft tissues: The visualized pharyngeal soft tissues are normal in appearance noting angiographic pha se technique. The oropharyngeal airway appears widely patent. The thyroid gland is heterogeneous. The salivary glands are normal in appearance. No cervical lymphadenopathy is seen. Skeletal structures: The skeletal structures are osteopenic. The calvarium appears intact. The cervic al spine is maintained noting multilevel spondylosis. No lytic or blastic lesion is seen. Orbits: The bony orbits are intact. Orbital contents are normal as visualized noting a right ocular l ens implant. Sinuses and mastoids: There is trace mucosal thickening within the maxillary antra. The remaining par anasal sinuses are clear. The mastoid air cells are well pneumatized. IMPRESSION: 1. There is no evidence of hemorrhage, mass effect, or acute territorial ischemia noting angiographic phase technique. 2. 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 3. Otherwise unremarkable CT angiogram of the brain. 4. Unremarkable CT angiogram of the neck. ACT 112: Negative or not required by law. Electronically signed by: Jorge Gross M.D. 04/17/2022 5:38 PM
[2022-04-17] MEDS ORDERED: ASPIRIN 81 MG CHEW PO STA (18:34)
[2022-04-17] MEDS ORDERED: ACETAMINOPHEN 325 MG TAB PO PRN (18:34)
[2022-04-17] MEDS ORDERED: POLYETHYLENE (MIRALAX) 17 GM PACK PO PRN (18:34)
--- NOTE | 2022-04-17 18:42 | Electrocardiogram Report ---
Test Reason : Blood Pressure : / mmHG Vent. Rate : 067 BPM Atrial Rate : 067 BPM P-R Int : 150 ms QRS Dur : 132 ms QT Int : 438 ms P-R-T Axes : 076 048 002 degrees QTc Int : 462 ms Poor data quality, interpretation may be adversely affected Normal sinus rhythm with sinus arrhythmia Right bundle branch block Possible Inferior infarct , age undetermined Abnormal ECG When compared with ECG of 01-AUG-2021 20:36, Right bundle branch block is now Present Confirmed by Amarjit Rodriguez ([id number]) on 04/17/2022 6:42:25 PM Referred By: ED Confirmed By:Janes Rodriguez
[2022-04-17] MEDS: METOPROLOL TARTRATE 100 MG TAB PO SCH (20:55)
[2022-04-17] MEDS ORDERED: NON-FORMULARY MEDICATION (Dutasteride [Avodart] 0.5 mg capsule) PO SCH (21:00)
[2022-04-17] MEDS ORDERED: FINASTERIDE 5 MG TAB PO SCH (21:00)
[2022-04-17] MEDS ORDERED: ROSUVASTATIN CALCIUM 20 MG TAB PO SCH (21:00)
[2022-04-17] MEDS: DOXYCYCLINE HYCLATE 100 MG CAP PO SCH (22:23)
[2022-04-17] MEDS: HEPARIN SOD 5,000 UNIT/0.5 ML VIAL SQ SCH (22:24)
[2022-04-18 05:06] LABS: Appearance Urine Clear (Clear); Bilirubin Urine Negative (Negative); Blood Urine Negative (Negative); Color Urine Yellow; Glucose Urine UA Negative (Negative); Ketones Urine Negative (Negative); Leukocyte Esterase Urine Negative (Negative); Nitrite Urine Negative (Negative); Protein Urine Negative (Negative); Specific Gravity Urine 1.039 (1.000-1.030); Urobilinogen Urine Negative (Negative)
[2022-04-18 06:58] LABS: Basophils # (auto) 0.02 K/uL (0-0.2); Basophils % (auto) 0.3 %; Eosinophils # (auto) 0.58 K/uL (0-0.5); Hematocrit (blood only) 48.2 % (42-52); Hemoglobin 16.4 g/dL (14.0-18.0); Immature Granulocytes # (auto) 0.01 K/uL (0.00-0.02); Immature Granulocytes % (auto) 0.2 %; Lymphocytes # (auto) 1.33 K/uL (1.2-3.4); Lymphocytes % (auto) 20.7 %; Mean Corpuscular Hemoglobin 29.7 pg (25-34); Mean Corpuscular Volume 87.2 fL (80-100); Mean Platelet Volume 10.2 fL (7.4-10.4); Monocytes # (auto) 0.71 K/uL (0.11-0.59); Monocytes % (auto) 11.1 %; Neutrophils # (auto) 3.76 K/uL (1.4-6.5); Neutrophils % (auto) 58.7 %; Platelet Count 175 K/uL (130-400); RDW Coefficient of Variation 14.1 % (11.5-14.5); RDW Standard Deviation 44.7 fL (36.4-46.3); Red Blood Count 5.53 M/uL (4.7-6.1); White Blood Count 6.41 K/uL (4.8-10.8)
[2022-04-18 07:24] LABS: BUN Creatinine Ratio 19.6 (10-20); Calcium 8.7 mg/dl (8.5-10.1); Chol HDL Ratio 3.7 (0-5); Creatinine Clr Calc Pharmacy 58.6 ml/min; Est GFR (Non-African American) 68.1 ml/min; Magnesium 1.9 mg/dl (1.7-2.4); Potassium 3.9 mmol/L (3.5-5.1)
--- NOTE | 2022-04-18 08:23 | Magnetic Resonance Report ---
MRI OF THE BRAIN WITHOUT CONTRAST CLINICAL HISTORY: Slurred speech. Left facial droop. Evaluate for new CVA. COMPARISON STUDY: Head CT and CTA of the head April 17, 2022. TECHNIQUE: Utilizing a 1.5 Christianne magnet and dedicated coil, multiplanar, multiecho imaging of the bra in was performed without IV contrast. FINDINGS: There are no foci of restricted diffusion to suggest acute infarct. No acute intracranial h emorrhage, midline shift or mass effect is present. White matter T2 hyperintense foci there small ves rosa m disease. There is an old 1.3 cm infarct within the right parietal lobe. There are no extra-axial collections. Basal cisterns are patent. Ventricular system is unremarkable. Calvarial signal is withi n normal limits. No evidence for sinusitis. There is no mastoid fluid. No intracranial mass is identi fied on this unenhanced exam. Flow-voids for the major intracranial vessels are present. IMPRESSION: 1. No acute intracranial findings. 2. 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 White matter T2 hyperintense foci suggestive of small vessel disease. ACT 112: Negative or not required by law. Electronically signed by: Elio Greer M.D. 04/18/2022 8:22 AM
[2022-04-18] MEDS ORDERED: IRBESARTAN 75 MG TAB PO SCH (09:00)
[2022-04-18] MEDS ORDERED: PANTOprazole 40 MG TAB PO SCH (09:00)
[2022-04-18] MEDS: METOPROLOL TARTRATE 100 MG TAB PO SCH (09:04)
[2022-04-18] MEDS: HEPARIN SOD 5,000 UNIT/0.5 ML VIAL SQ SCH (09:04)
[2022-04-18] MEDS: DOXYCYCLINE HYCLATE 100 MG CAP PO SCH (09:04)
--- NOTE | 2022-04-18 16:25 | Discharge Summary ---
Date of Service April 18, 2022 Admission HPI Per Admitting Provider 82 YOM with medical history of: CAD, BPH, HTN, TIA(05/25), bullous pemphigus, Aortic Sclerosis, DVT, NH, previous smoker. Patient was brought to EMD today by his daughter for concenrs of slurred speech and left eye lid drooping. The daughter says she talked to him on the phone this morning around 10:30 AM prior to his Physical Therapy appointment, she thought his speech was "thick and slow". Patient drove himself to physical therapy and completed this (he is in process of getting rolling walker). His daughter went to check on him at physical therapy and the patient was already on his way home, she met him at his house, and noted that his speech was still slurring and his left eye was "a little slit", they ate lunch and had a PCP appointment around 1300 today, where symptoms resolved. He was then sent to the EMD. The patient and the daughter do not endorse any other symptoms of associated weakness, difficulty swallowing, or headaches. The patient recalls that his speech seemed a little slower this morning, but really didn't talk to too many people today at PT. He feels he is back to baseline at this time. He had a previous TIA reportedly in 2020, where he did not want any medical evaluation- so he stayed home but did have an ECHO and Holter monitor performed at that time that was negative. Daughter reports that he presented at that time with amnesia like behavior and agitation. She reports that resolved over a few hours. The patient remains on 162mg of ASA at home and statin therapy. He does bump into things at home as well as falls, which is why he is at PT. Patient will be observed overnight, obtain CTA of head and neck, MRI, ECHO and lipid panel for medical optimization. Will have PT/OT evaluation COVID on admission is: NEGATIVE Principal Diagnosis TIA Discharge Exam General: A&Ox3. NAD. Cooperative. No dysarthria is appreciated. HEENT: Atraumatic, normocephalic. Patient and hearing grossly intact Pulm: CTAB A&P. -wheezes, -rales, -rhonchi. Symmetrical chest rise. No increase in work of breathing. No respiratory distress. Cardiac: RRR, -mrg. Radial pulses intact and symmetrical. Abdominal: Nontender, nondistended, soft. BS present. CRANIAL NERVES: II: Pupils equal and reactive, no relative afferent pupillary defect, no VF cuts III, IV, : EOM intact, no gaze preference or deviation, no nystagmus. V: normal sensation in V1, V2, and V3 segments bilaterally VII: no asymmetry, no nasolabial fold flattening VIII: normal hearing to speech IX, X: normal palatal elevation, no uvular deviation XI: 5/5 head turn and 5/5 shoulder shrug bilaterally XII: midline tongue protrusion MOTOR: RUE: 5/5 Shoulder flexion 5/5 Elbow flexion/extension, wrist flexion/extension 5/5 retail store manager strength, finger flexion/extension, interosseus LUE: 5/5 Shoulder flexion 5/5 Elbow flexion/extension, wrist flexion/extension 5/5 retail store manager strength, finger flexion/extension, interosseus RLE: 5/5 to hip flexion, ankle dorsiflexion/plantarflexion LLE: 5/5 to hip flexion, ankle dorsiflexion/plantarflexion SENSORY: Normal to soft touch in upper and lower extremities without deficit or asymmetry Discharge Data Allergies Allergy/AdvReac Type Severity Reaction Status Date / Time lisinopril AdvReac Intermediate Cough Verified 04/17/22 16:53 Consultations 04/17/22 16:59 ED Decision to Admit Stat Ordered Studies 04/17/22 14:47 CT head/brain wo con Stat 04/17/22 16:52 CT angio head w con Stat CT angio neck with con Stat 04/17/22 18:34 MR brain wo con Routine Hospital Course (1) TIA (transient ischemic attack): Fox is an 82-year-old male with a past medical history of CAD with PCI, TIA, hypertension, GERD, and hyperlipidemia who presented with an episode of facial droop and speech slurring which occurred at home and had resolved by time of arrival to the emergency department. CT did not show any stroke pathology, moderate focal stenosis of the left MISSAEL was appreciated. Follow-up MRI as noted below showed evidence of old stroke without acute infarct. Does have a history of CAD with PCI for which she was on dual antiplatelet therapy and eventually switched to aspirin monotherapy. This was doubled in dose when he had a prior TIA, and was switched to Plavix prior to discharge this admission. To do as outpatient: 1. Continue Plavix 75 mg daily. This has replaced aspirin 182 mg daily 2. Consider increase in rosuvastatin to 40 mg. This was discussed with patient, he reported his prior doctor had told him not to do this for an unclear reason. His LDL as below remains with room for improvement and is not so low as to increase bleeding risk, but it is unclear if he has had any liver problems in the past precluding dose increase. He was instructed to follow-up with his PCP within 1 week and discuss whether this would be safe for him TIA, patient with facial droop and slurring 10:30 AM day of admission with resolution by 1 PM - Neurologically intact at discharge - CT-H/CTA-N. There is no evidence of hemorrhage, mass effect, or acute territorial ischemia noting angiographic phase technique. There is moderate focal stenosis of the left anterior cerebral artery.. Otherwise unremarkable CT angiogram of the brain.. Unremarkable CT angiogram of the neck. - MRI: No acute intracranial findings. 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 White matter T2 hyperintense foci suggestive of small vessel disease. - Given ASA 162mg at admit, discharged on plaavix 75mg Lipid panel: Triglycerides 117, cholesterol 143, LDL 81, HDL 39 EKG: NSR, right bundle branch block - Rosuvastatin as above - BP controlled No further deficits noted during admission (2) Benign prostatic hyperplasia with urinary obstruction: Continue with dutasteride- feels as symptoms are controlled (3) Hypertension: Continue with irbesartan, continue metoprolol 100mg PO BID (4) Hypercholesterolemia: As above eval in am for statin change or increase (5) CAD (coronary artery disease): CAD with history of stents ~ 10-12 years ago - Continue with ASA, Irbesartan, BB - Denies any CP or dyspnea, no ACS during admission (6) GERD (gastroesophageal reflux disease): Continue omeprazole Total Time Total Time Spent Total Time Spent (In Minutes): Time spend day of discharge 45 minutes including direct patient care, documentation, review of labs and images, and coordination of care. Discharge Plan Discharge Items Patient Disposition: Home - Self-Care Reason For Visit: TIA/CVA Discharge Diagnosis: TIA Activity: Resume your previous activity Non-emergency contact: Primary Care Provider Call non-emergency contact if: you have any medication questions, your symptoms worsen, your pain is not controlled and your pain is worsening Follow-up/Referrals: Stevie Meade MD [Primary Care Provider] - Diet: Heart Healthy Addtl Attending Provider Instructions: You are seen in the hospital for concerns of a stroke versus mini stroke, and had some facial droop and difficulty speaking which had resolved by arrival to the hospital. Your CT scan did not show any acute abnormalities. Your follow- up MRI showed evidence of an old stroke and narrowing of a blood vessel in the brain, but no evidence of new stroke. Your case was reviewed and discussed with neurology. It was recommended that you return home on Plavix instead of aspirin. A prior provider had recommended that you not increase rosuvastatin past 20 mg, but was unclear what this reason was and you had not had aches/myalgias. There are some liver related reasons to not increase this past 20 mg, please pay close attention to this and follow-up with your primary care provider. Your aspirin has been stopped. Please stop taking aspirin, this is been replaced with Plavix You have been prescribed a medication, Plavix. This replaces your aspirin. Please take Plavix 75 mg daily. You were in your normal state of health with resolution of symptoms by time of discharge. Please see your primary care provider within 1 week for follow-up appointment. If you develop any new or worsening symptoms including fever, chills, sweats, chest pain, chest pressure, difficulty breathing, uncontrolled nausea/vomiting, rash, wheezing, passing out or nearly passing out, bleeding, black/bloody bowel movements, or other new or concerning symptoms please call your primary care physician, or call 911 for re-evaluation in the emergency department if you are very concerned. Pending Studies at Discharge: No Stand-Alone Forms: My [facility], Smoking Cessation Medications and DC Order Prescriptions: New clopidogrel 75 mg tablet 75 mg PO DAILY Qty: 30 RF: 0 Continued clobetasol 0.05 % ointment 1 applic topical DIRECTED PRN (Reason: Skin Irritation) RF: 0 doxycycline hyclate 100 mg tablet 100 mg PO BID Qty: 60 RF: 4 cholecalciferol (vitamin D3) [Vitamin D3] 25 mcg (1,000 unit) Capsule 25 mcg PO QAM RF: 0 rosuvastatin [Crestor] 20 mg Tablet 20 mg PO QPM RF: 0 glucosamine-chondroitin [Osteo Bi-Flex] 250-200 mg Tablet 1 tab PO QPM RF: 0 omeprazole magnesium [Prilosec OTC] 20 mg Tablet,Delayed Release (Dr/Ec) 20 mg PO DAILY RF: 0 dutasteride [Avodart] 0.5 mg capsule 0.5 mg PO QPM RF: 0 metoprolol tartrate 100 mg tablet 100 mg PO BID RF: 0 irbesartan 75 mg Tablet 75 mg PO DAILY RF: 0 Discontinued aspirin 81 mg Tablet,Delayed Release (Dr/Ec) 162 mg PO QPM RF: 0 Discharge Orders: Discharge Order (Routine); Ordered 04/18/22 Ordered By: Juanito Huang Admission Data Admit Date/Time: 04/17/22 17:11 Attending Provider: Juanito Huang Admit Provider: Stevie Romano Primary Care Provider: Stevie Meade Other Providers: Stevie Romano Other Interventions: Discharge Summary Assessment (RN) Last Done: 04/18/22 08:00 Coding Level of Care Code D/C DAY MANAGEMENT >30 MINS Diagnoses TIA (transient ischemic attack) G45.9 Benign prostatic hyperplasia with urinary obstruction N40.1; N13.8 Hypertension I10 Hypercholesterolemia E78.00 CAD (coronary artery disease) I25.10 GERD (gastroesophageal reflux disease) K21.9
--- NOTE | 2022-04-18 20:42 | XCELERA ---
[id number]
[2022-04-18] MEDS ORDERED: ASPIRIN 81 MG ECTAB PO SCH (21:00)
== END 2022-04-18 15:49 | disposition home or self-care (01) ==
LOC: 2N 14:35 → ED 14:35 → SUATTDRO 17:11 → 2N 17:42

== ENCOUNTER 2022-12-22 22:43 | Observation (INO) ==
[2022-12-22] MEDS ORDERED: SODIUM CHLORIDE 0.9% 500 ML IV STA (22:49)
[2022-12-22 23:23] LABS: Basophils # (auto) 0.06 K/uL (0-0.2); Basophils % (auto) 0.5 %; Eosinophils # (auto) 0.24 K/uL (0-0.50); Hematocrit (blood only) 51.3 % (42.0-52.0); Hemoglobin 17.7 g/dl (14.0-18.0); Immature Granulocytes # (auto) 0.03 K/uL (0.01-0.20); Immature Granulocytes % (auto) 0.2 %; Lymphocytes # (auto) 1.38 K/uL (1.2-3.4); Lymphocytes % (auto) 11.4 %; Mean Corpuscular Hemoglobin 29.5 pg (25.0-34.0); Mean Corpuscular Hgb Conc 34.5 g/dL (32.0-36.0); Mean Corpuscular Volume 85.6 fL (80.0-100.0); Mean Platelet Volume 10.3 fL (9.4-12.4); Monocytes # (auto) 1.21 K/uL (0.11-0.59); Neutrophils # (auto) 9.19 K/uL (1.40-6.50); Neutrophils % (auto) 75.9 %; Platelet Count 182 K/uL (130-400); RDW Coefficient of Variation 13.5 % (11.5-14.5); RDW Standard Deviation 42.2 fL (36.4-46.3); Red Blood Count 5.99 M/uL (4.70-6.10); White Blood Count 12.11 K/ul (4.8-10.8)
[2022-12-22 23:33] LABS: Albumin Globulin Ratio 1.4 (0.9-2); Albumin Level 4.2 gm/dl (3.4-5.0); BUN Creatinine Ratio 14.8 (10-20); Bilirubin,Total 0.9 mg/dl (0.2-1.0); Calcium 9.6 mg/dl (8.5-10.1); Creatinine Clr Calc Pharmacy 48.1 ml/min; Est GFR (African American) 63.6 ml/min; Est GFR (Non-African American) 54.9 ml/min; Globulin 3.1 gm/dl (2.5-4.0); Potassium 4.2 mmol/L (3.5-5.1); Total Protein 7.3 gm/dl (6.0-8.3)
[2022-12-23] MEDS ORDERED: OPTIRAY 350 100ml IV ONE (00:33)
[2022-12-23] MEDS ORDERED: MoRPHine SULFATE 4 MG/ML 1 ML CARP\\VIAL IV STA (00:43)
[2022-12-23] MEDS ORDERED: ONDANSETRON INJ 2 MG/ML 2 ML VIAL IV STA (00:43)
[2022-12-23] MEDS ORDERED: ALBUT/IPRATROP 3MG/0.5MG NEB 3 ML VIAL NEB STA (00:46)
--- NOTE | 2022-12-23 00:53 | Emergency Department Note ---
History of Present Illness General Chief complaint: Kidney Stone Stated complaint: KIDNEY STONE, R ABDOMINAL PAIN, Time Seen by Provider: 12/23/22 00:33 History of Present Illness This 82-year-old male presents to the ER complaining of right flank abdominal pain for the past day with a history of kidney stones. Patient denies chest pain, dyspnea, fevers, vomiting, diarrhea or any other medical complaints. Home Medications Medication Instructions Recorded Confirmed Type cholecalciferol (vitamin D3) 25 25 mcg PO QAM 06/24/21 09/04/22 History mcg (1,000 unit) capsule (Vitamin D3) glucosamine-chondroitin 250 mg-200 1 tab PO QPM 06/24/21 09/04/22 History mg tablet (Osteo Bi-Flex) omeprazole magnesium 20 mg 20 mg PO DAILY 06/24/21 09/04/22 History tablet,delayed release (Prilosec OTC) rosuvastatin 20 mg tablet (Crestor) 20 mg PO QPM 06/24/21 09/04/22 History clobetasol 0.05 % topical ointment 1 applic topical DIRECTED PRN 02/21/22 09/04/22 History Skin Irritation dutasteride 0.5 mg capsule 0.5 mg PO QPM 02/21/22 09/04/22 History (Avodart) irbesartan 75 mg tablet 75 mg PO DAILY 04/17/22 09/04/22 History metoprolol tartrate 100 mg tablet 100 mg PO BID 04/17/22 09/04/22 History clopidogrel 75 mg tablet 75 mg PO DAILY #30 tabs 04/18/22 09/04/22 Rx doxycycline hyclate 100 mg tablet 100 mg PO DAILY #90 tabs 09/04/22 09/04/22 Rx memantine 10 mg tablet (Namenda) 10 mg PO BID 09/04/22 09/04/22 History Allergies Allergy/AdvReac Type Severity Reaction Status Date / Time lisinopril AdvReac Intermediate Cough Verified 09/04/22 09:47 Past Med/Surg History Medical History Bilateral cellulitis of lower leg BPH (benign prostatic hyperplasia) CAD (coronary artery disease) Cellulitis of scrotum Deep vein thrombosis RT LEG (4 YEARS AGO/? REASON) GERD (gastroesophageal reflux disease) Hearing deficit History of bladder stone History of kidney stones History of skin cancer Hypercholesterolemia Hypertension Myocardial Infarction 10 YEARS AGO Nephrolithiasis Pulmonary embolism 4 YEARS AGO ? REASON Reactive airway disease NO INHALER TIA (transient ischemic attack) MAY 20, 2021>SYMPTOMS RESOLVED/NO DEFECITS Surgical History H/O eye surgery LEFT EYE LASER SURGERY History of anesthesia reaction History of colonoscopy History of cystoscopy History of heart artery stent 2 STENTS PLACED ([facility]/10 YEARS AGO) History of lithotripsy History of tooth extraction Family History Father History of parotid cancer Prostate cancer Cardiac disorder Mother Diabetes Cardiac disorder Brother Prostate cancer Kidney stones Other No family history of adverse response to anesthesia Social History Smoking Status: Never smoker Second Hand Exposure: No; Hx Alcohol Use: No Hx Substance Use: No Preferred Language: Cymraes Communication Ability: Effective Green Material Value Added Assessor Required: No Beliefs That Will Affect Care: None marital status: / Current Living Situation: Alone Current Living Situation Comment: lives in [facility] current occupational status: retired Feels Safe at Home: Yes Assistive Devices: Cane and Glasses Review of Systems A total of 10 systems reviewed and were otherwise negative Physical Exam Vital Signs Vital Signs - 24 hr 12/22/22 22:45 12/23/22 01:00 12/23/22 01:30 Temperature 36.7 C Temperature Source Temporal Artery Scan Pulse Rate 99 H 101 H 104 H Pulse Rate from SpO2 Sensor 99 H 92 H Respiratory Rate 24 27 H 26 H Respiratory Effort / Characteristics Non-Labored Spontaneous Respiratory Depth Normal Blood Pressure 181/76 H 187/89 H 162/95 H Blood Pressure Mean 111 121 117 Blood Pressure Position Sitting Pulse Oximetry 93 94 92 Oxygen Delivery Method Room Air Nasal Cannula Oxygen Flow Rate 3 Sepsis Recent Fever Within 48 Hours No Sepsis New/Unexplained Change in Mental Status N/A Sepsis Action Taken by Nursing No Action Required VITALS: Vitals are noted on the nurse's note and reviewed by myself. Vital signs stable. GENERAL: Pleasant gentleman who appears in pain, in no acute distress, nondiaphoretic, well-developed well-nourished. SKIN: The skin was without rashes, erythema, edema, or bruising. There is no tenting of the skin. Capillary reflex less than 2 seconds. HEAD: Normocephalic atraumatic. EARS: External auditory canals clear, EYES: Pupils equal round and reactive to light and accommodation. Conjunctivae without injection, sclerae without icterus. Extraocular movements intact. NOSE: Patent, turbinates without inflammation or discharge. MOUTH: Mucous membranes moist. Pharynx without erythema or exudate. Uvula midline. Airway patent. Tongue does not deviate. NECK: Supple without nuchal rigidity. No lymphadenopathy. No thyromegaly. Cervical spine is nontender. No JVD. HEART: Regular rate and rhythm LUNGS: Mild diffuse end expiratory wheezes, without rales or rhonchi. No retractions or accessory muscle use. ABDOMEN: Positive bowel sounds x 4. Normal tympanic percussion. Soft, nontender, without masses or organomegaly. Nunez sign negative. No guarding or rebound tenderness. No CVA tenderness MUSCULOSKELETAL: No muscle atrophy, erythema, or edema noted. NEURO: Patient was alert and oriented to person place and time. Normal sensation to light and sharp touch. No focal neurological deficits. Course Administered Medications Discontinued Medications Albuterol (Albut/Ipratrop 3mg/0.5mg Neb 3 Ml Vial) 3 ml NEB NOW STA; Protocol Stop: 12/23/22 00:47 Last Admin: 12/23/22 01:03 Dose: 3 ml Documented By: ALONZO Sodium Chloride (Nss) 500 mls @ 999 mls/hr IV .Q31M STA Stop: 12/22/22 23:19 Last Infusion: 12/23/22 00:34 Dose: 0 mls/hr Documented By: Admin: 12/22/22 22:58 Dose: 999 mls/hr Documented By: SELMA Acetaminophen (Ofirmev) 1,000 mg in 100 mls @ 400 mls/hr IV NOW STA Stop: 12/23/22 01:39 Last Infusion: 12/23/22 02:27 Dose: 0 mls/hr Documented By: Admin: 12/23/22 01:46 Dose: 400 mls/hr Documented By: ALONZO Ioversol (Optiray 350 100ml) 88 ml IV ONCE ONE Stop: 12/23/22 00:34 Last Admin: 12/23/22 00:31 Dose: 88 ml Documented By: MANDY Methylprednisolone (Methylprednisolone 125 Mg/2 Ml Vial) 125 mg IV NOW STA Stop: 12/23/22 01:26 Last Admin: 12/23/22 01:46 Dose: 125 mg Documented By: BS Morphine Sulfate (Morphine Sulfate 4 Mg/Ml 1 Ml Carp\Vial) 4 mg IV NOW STA Stop: 12/23/22 00:44 Last Admin: 12/23/22 01:03 Dose: 4 mg Documented By: BS Ondansetron HCl (Ondansetron Inj 2 Mg/Ml 2 Ml Vial) 4 mg IV NOW STA Stop: 12/23/22 00:44 Last Admin: 12/23/22 01:03 Dose: 4 mg Documented By: BS Medical Decision Making Medical Records Attestation: I reviewed the patient's medical records. Home Medications Current Medication List: was personally reviewed by me Laboratory Data Attestation: I reviewed the patient's lab results. 12/22/22 23:00 12/22/22 23:00 Lab Results 12/22/22 12/22/22 12/22/22 Range/Units 23:00 23:00 23:00 WBC 12.11 H (4.8-10.8) K/ul RBC 5.99 (4.70-6.10) M/uL Hgb 17.7 (14.0-18.0) g/dl Hct 51.3 (42.0-52.0) % MCV 85.6 (80.0-100.0) fL MCH 29.5 (25.0-34.0) pg MCHC 34.5 (32.0-36.0) g/dL RDW Std Deviation 42.2 (36.4-46.3) fL RDW Coeff of Kateryna 13.5 (11.5-14.5) % Plt Count 182 (130-400) K/uL MPV 10.3 (9.4-12.4) fL Immature Gran % (Auto) 0.2 % Neut % (Auto) 75.9 % Lymph % (Auto) 11.4 % [place] % (Auto) 10.0 % Eos % (Auto) 2.0 % Baso % (Auto) 0.5 % Neut # (Auto) 9.19 H (1.40-6.50) K/uL Lymph # (Auto) 1.38 (1.2-3.4) K/uL [place] # (Auto) 1.21 H (0.11-0.59) K/uL Eos # (Auto) 0.24 (0-0.50) K/uL Baso # (Auto) 0.06 (0-0.2) K/uL Immature Gran # (Auto) 0.03 (0.01-0.20) K/uL Sodium 138 (136-145) mmol/L Potassium 4.2 (3.5-5.1) mmol/L Chloride 103 (98-107) mmol/L Carbon Dioxide 26 (21-32) mmol/L Anion Gap 9 (3-11) BUN 18 (6-23) mg/dl Creatinine 1.22 (0.6-1.4) mg/dl Est Cr Clr Drug Dosing 48.1 ml/min Est GFR ( Amer) 63.6 ml/min Est GFR (Non-Af Amer) 54.9 ml/min BUN/Creatinine Ratio 14.8 (10-20) Glucose 114 H (70-99(Fasting)) mg/dl Calcium 9.6 (8.5-10.1) mg/dl Total Bilirubin 0.9 (0.2-1.0) mg/dl AST 19 (13-39) U/L ALT 11 (7-52) U/L Alkaline Phosphatase 109 H (34-104) U/L Troponin I High Sens 6.7 (0-20) pg/ml B-Natriuretic Peptide (0-100) pg/ml Total Protein 7.3 (6.0-8.3) gm/dl Albumin 4.2 (3.4-5.0) gm/dl Globulin 3.1 (2.5-4.0) gm/dl Albumin/Globulin Ratio 1.4 (0.9-2) Urine Color Urine Appearance (Clear) Urine pH (4.5-7.5) Ur Specific [place] (1.000-1.030) Urine Protein (Negative) Urine Glucose (UA) (Negative) Urine Ketones (Negative) Urine Blood (Negative) Urine Nitrite (Negative) Urine Bilirubin (Negative) Urine Urobilinogen (Negative) Ur Leukocyte Esterase (Negative) Urine WBC (Auto) (0-5) /hpf Urine RBC (Auto) (0-4) /hpf U Hyaline Cast (Auto) (0-5) /lpf U Epithel Cells (Auto) (0-5) /lpf Urine Bacteria (Auto) (Negative) SARS-CoV-2 (PCR) (Negative) Influenza Type A (PCR) (Neg) Influenza Type B (PCR) (Neg) RSV (RT-PCR) (Neg) 12/22/22 12/23/22 12/23/22 Range/Units 23:00 00:45 01:45 WBC (4.8-10.8) K/ul RBC (4.70-6.10) M/uL Hgb (14.0-18.0) g/dl Hct (42.0-52.0) % MCV (80.0-100.0) fL MCH (25.0-34.0) pg MCHC (32.0-36.0) g/dL RDW Std Deviation (36.4-46.3) fL RDW Coeff of Kateryna (11.5-14.5) % Plt Count (130-400) K/uL MPV (9.4-12.4) fL Immature Gran % (Auto) % Neut % (Auto) % Lymph % (Auto) % [place] % (Auto) % Eos % (Auto) % Baso % (Auto) % Neut # (Auto) (1.40-6.50) K/uL Lymph # (Auto) (1.2-3.4) K/uL [place] # (Auto) (0.11-0.59) K/uL Eos # (Auto) (0-0.50) K/uL Baso # (Auto) (0-0.2) K/uL Immature Gran # (Auto) (0.01-0.20) K/uL Sodium (136-145) mmol/L Potassium (3.5-5.1) mmol/L Chloride (98-107) mmol/L Carbon Dioxide (21-32) mmol/L Anion Gap (3-11) BUN (6-23) mg/dl Creatinine (0.6-1.4) mg/dl Est Cr Clr Drug Dosing ml/min Est GFR ( Amer) ml/min Est GFR (Non-Af Amer) ml/min BUN/Creatinine Ratio (10-20) Glucose (70-99(Fasting)) mg/dl Calcium (8.5-10.1) mg/dl Total Bilirubin (0.2-1.0) mg/dl AST (13-39) U/L ALT (7-52) U/L Alkaline Phosphatase (34-104) U/L Troponin I High Sens (0-20) pg/ml B-Natriuretic Peptide 267 H (0-100) pg/ml Total Protein (6.0-8.3) gm/dl Albumin (3.4-5.0) gm/dl Globulin (2.5-4.0) gm/dl Albumin/Globulin Ratio (0.9-2) Urine Color Yellow Urine Appearance Clear (Clear) Urine pH 5.0 (4.5-7.5) Ur Specific [place] 1.032 H (1.000-1.030) Urine Protein Trace H (Negative) Urine Glucose (UA) Negative (Negative) Urine Ketones Trace H (Negative) Urine Blood Trace H (Negative) Urine Nitrite Negative (Negative) Urine Bilirubin Negative (Negative) Urine Urobilinogen Negative (Negative) Ur Leukocyte Esterase Negative (Negative) Urine WBC (Auto) 1-5 (0-5) /hpf Urine RBC (Auto) 0-4 (0-4) /hpf U Hyaline Cast (Auto) 5-10 H (0-5) /lpf U Epithel Cells (Auto) 10-20 H (0-5) /lpf Urine Bacteria (Auto) Negative (Negative) SARS-CoV-2 (PCR) NEGATIVE (Negative) Influenza Type A (PCR) Negative (Neg) Influenza Type B (PCR) Negative (Neg) RSV (RT-PCR) Negative (Neg) Imaging Data Attestation: I personally reviewed and interpreted this imaging study as follows: Radiologist's Impression: Abdomen/Pelvis CT 12/22/22 22:57 CT SCAN OF THE ABDOMEN AND PELVIS WITH IV CONTRAST CLINICAL HISTORY: Generalized abdominal pain. COMPARISON STUDY: Abdominal CT dated 10/28/2021. TECHNIQUE: Following the IV administration of 88 cc of Optiray 350, CT scan of the abdomen and pelvis is performed from the lung bases to the proximal femora. Images are reviewed in the axial, sagittal, and coronal planes. IV contrast was administered without complication. A dose lowering technique was utilized adhering to the principles of ALARA. CT DOSE: 967.03 mGy.cm FINDINGS: Lung bases: The heart is enlarged and without pericardial effusion. The coronary arteries and aortic valve leaflets are densely calcified. There is trace right pleural effusion. Chronic fibrotic change and nodularity with foci of parench ymal scarring is again seen at the lung bases. This is similar to previous. There is a small to moderate hiatal hernia. Liver: The contrast-enhanced liver is normal in size, contour, and attenuation. There is no intrahepatic biliary ductal dilatation. The hepatic veins and portal veins are patent. Gallbladder: Unremarkable. Spleen: Normal in size and attenuation. Pancreas: Unremarkable. Adrenal glands: Unremarkable. Kidneys: The contrast enhanced kidneys demonstrate cortical atrophy and are without hydronephrosis. The kidneys enhance symmetrically. Bilateral nonobstructing renal calculi measuring up to 5 mm. A 9 mm cyst is noted in the left upper pole. Abdominal vasculature: There is advanced atherosclerotic calcification of the abdominal aorta. An infrarenal abdominal aortic aneurysm measures 4.2 x 4.5 cm (AP x transverse). Bowel: There is no bowel obstruction. Mild fecal retention is seen throughout the colon. The appendix is well-visualized and normal. Peritoneum: There is no intraperitoneal free air or abdominal ascites. Lymphadenopathy: None. Pelvic viscera: The prostate gland is enlarged and heterogeneous noting medial lobe hypertrophy. The bladder wall is thickened/trabeculated indicating chronic outlet obstruction. There is a fat-containing left inguinal hernia. Skeletal structures: The skeletal structures are osteopenic. There is moderate to advanced lumbosacral spondylosis. A chronic compression deformity is noted in the body of L1. No lytic or blastic lesions are seen. IMPRESSION: 1. No acute infectious or inflammatory findings are identified in the abdomen or pelvis. 2. Bilateral nephrolithiasis. 3. There is a 4.2 x 4.5 cm infrarenal abdominal aortic aneurysm. 4. Cardiomegaly and chronic fibrotic change at the lung bases is similar to previous. 5. Additional findings as above. ACT 112: Negative or not required by law. Electronically signed by: Jorge Gross M.D. 12/23/2022 1:10 AM [facility] Narrative Prior records/ancillary studies reviewed. Triage Nursing notes reviewed. Additional history obtained from family. The patient's history was concerning for abdominal pain. Differential diagnosis: Etiologies such as appendicitis, diverticulitis, PUD, biliary pathology, UTI, pancreatitis, obstruction, mesenteric ischemia, aortic pathology, infections, inflammatory bowel disease, renal colic, as well as others were entertained. Physical examination findings: As above. ER treatment provided: An order was placed for continuous cardiac monitoring. The monitor shows a rate of 60-1 10 with a sinus rhythm per my Independent interpretation. Morphine Zofran IV fluids and nebulizer were ordered On reassessment the patient felt better. Diagnostics interpreted by me: ECG: Ordered for low O2 sats EKG: Normal sinus, occasional PVC, no acute ST-T wave changes. Impression normal sinus rhythm with occasional PVC interpreted by myself I think arrhythmia is unlikely. EKG shows normal sinus rhythm with no interval abnormalities such as QT prolongation or WPW. There are no findings to suggest Brugada syndrome. Cardiac monitoring in the emergency department reveals no tachycardic or bradycardic dysrhythmia. Hypertrophic cardiomyopathy was consider ed but there are no clear historical elements pointing toward this. EKG is not suggestive. The QRS voltage is not extremely large and there are no suggestive Q waves. The labs Independently Interpreted by myself revealed leukocytosis, negative troponin Negative urine Imaging studies: CTs as above Chest x-ray concerning for right lower lobe pneumonia per my independent interpretation Consultation: A consultation was placed with the hospitalist. The case was discussed and diagnostics were reviewed. The patient was evaluated in the ER for further treatment. CURB Score: Confusion: 01 Urea (BUN > 19): 0 Respiratory Rate (>30/min): 0 Blood Pressure: Diastolic <60 or Systolic <90 0 Age (>= 65) 1 Total (0-1 low risk, 2-5 high risk): 1 Exam and history seem consistent with pneumonia who sats are low and right flank pain. Patient was medicated as above. He was reassessed multiple times. Labs and diagnostics were independent interpreted by myself. Radiology read the CAT scan. Patient is agreeable treatment plan of admission. Medicine was consulted and the case was discussed. By the evaluation outlined above emergent etiologies such as appendicitis, diverticulitis, PUD, biliary pathology, UTI, pancreatitis, obstruction, mesenteric ischemia, aortic pathology, inflammatory bowel disease, renal colic, as well as others were deemed relatively unlikely. The pt/family informed about the findings as listed above. All questions were answered and pleased with the treatment. The chart was completed utilizing [email or web address] voice recognition software. Grammatical errors, random word insertions, pronoun errors, and incomplete sentences are an occassional consequence of this system due to software limitations, ambient noise, and hardware issues. Any formal questions or concerns about the content, text, or information contained within the body of this dictation should be directly addressed to the physician facilities maintenance assistant for clarification. Impression & Plan CAP (community acquired pneumonia), Acute right flank pain Discharge Plan Visit Data Chief Complaint: Kidney Stone Stated Complaint: KIDNEY STONE, R ABDOMINAL PAIN, ED Provider: Enrrique Ortega ED Midlevel Provider: Jing Momin Discharge Problem: CAP (community acquired pneumonia), Acute right flank pain Patient Disposition: Admitted As Inpatient Condition: Good Forms Stand Alone Forms: [facility] [employer] Prescriptions Prescriptions: No Action memantine [Namenda] 10 mg tablet 10 mg PO BID doxycycline hyclate 100 mg tablet 100 mg PO DAILY Qty: 90 1RF Rx Instructions: Take with food and take a daily probiotic. clobetasol 0.05 % ointment 1 applic topical DIRECTED PRN (Reason: Skin Irritation) cholecalciferol (vitamin D3) [Vitamin D3] 25 mcg (1,000 unit) Capsule 25 mcg PO QAM rosuvastatin [Crestor] 20 mg Tablet 20 mg PO QPM glucosamine-chondroitin [Osteo Bi-Flex] 250-200 mg Tablet 1 tab PO QPM omeprazole magnesium [Prilosec OTC] 20 mg Tablet,Delayed Release (Dr/Ec) 20 mg PO DAILY dutasteride [Avodart] 0.5 mg capsule 0.5 mg PO QPM metoprolol tartrate 100 mg tablet 100 mg PO BID irbesartan 75 mg Tablet 75 mg PO DAILY clopidogrel 75 mg tablet 75 mg PO DAILY Qty: 30 0RF Referrals Referrals: Stevie Meade MD [Primary Care Provider] - CAP (community acquired pneumonia) Qualifiers: Laterality: right Lung location: lower lobe of lung Qualified Code(s): J18.9 - Pneumonia, unspecified organism
--- NOTE | 2022-12-23 01:13 | CT Scan Report ---
CT SCAN OF THE ABDOMEN AND PELVIS WITH IV CONTRAST CLINICAL HISTORY: Generalized abdominal pain. COMPARISON STUDY: Abdominal CT dated 10/28/2021. TECHNIQUE: Following the IV administration of 88 cc of Optiray 350, CT scan of the abdomen and pelvi s is performed from the lung bases to the proximal femora. Images are reviewed in the axial, sagittal , and coronal planes. IV contrast was administered without complication. A dose lowering technique wa s utilized adhering to the principles of ALARA. CT DOSE: 967.03 mGy.cm FINDINGS: Lung bases: The heart is enlarged and without pericardial effusion. The coronary arteries and aortic valve leaflets are densely calcified. There is trace right pleural effusion. Chronic fibrotic change and nodularity with foci of parenchymal scarring is again seen at the lung bases. This is similar to previous. There is a small to moderate hiatal hernia. Liver: The contrast-enhanced liver is normal in size, contour, and attenuation. There is no intrahepa tic biliary ductal dilatation. The hepatic veins and portal veins are patent. Gallbladder: Unremarkable. Spleen: Normal in size and attenuation. Pancreas: Unremarkable. Adrenal glands: Unremarkable. Kidneys: The contrast enhanced kidneys demonstrate cortical atrophy and are without hydronephrosis. T he kidneys enhance symmetrically. Bilateral nonobstructing renal calculi measuring up to 5 mm. A 9 mm cyst is noted in the left upper pole. Abdominal vasculature: There is advanced atherosclerotic calcification of the abdominal aorta. An inf rarenal abdominal aortic aneurysm measures 4.2 x 4.5 cm (AP x transverse). Bowel: There is no bowel obstruction. Mild fecal retention is seen throughout the colon. The appendix is well-visualized and normal. Peritoneum: There is no intraperitoneal free air or abdominal ascites. Lymphadenopathy: None. Pelvic viscera: The prostate gland is enlarged and heterogeneous noting medial lobe hypertrophy. The bladder wall is thickened/trabeculated indicating chronic outlet obstruction. There is a fat-containi ng left inguinal hernia. Skeletal structures: The skeletal structures are osteopenic. There is moderate to advanced lumbosacra l spondylosis. A chronic compression deformity is noted in the body of L1. No lytic or blastic lesio ns are seen. IMPRESSION: 1. No acute infectious or inflammatory findings are identified in the abdomen or pelvis. 2. Bilateral nephrolithiasis. 3. There is a 4.2 x 4.5 cm infrarenal abdominal aortic aneurysm. 4. Cardiomegaly and chronic fibrotic change at the lung bases is similar to previous. 5. Additional findings as above. ACT 112: Negative or not required by law. Electronically signed by: Jorge Gross M.D. 12/23/2022 1:10 AM
[2022-12-23] MEDS ORDERED: methylPREDNISolone 125 MG/2 ML VIAL IV STA (01:25)
[2022-12-23] MEDS ORDERED: ACETAMINOPHEN 1,000 MG/100 ML VIAL IV STA (01:25)
[2022-12-23] MEDS ORDERED: PIPERACILLIN/TAZOBACTAM 4.5 GM/120 ML BAG IV ONE (01:37)
[2022-12-23 01:53] LABS: Appearance Urine Clear (Clear); Bacteria Urine Automated Negative (Negative); Bilirubin Urine Negative (Negative); Blood Urine Trace (Negative); Color Urine Yellow; Glucose Urine UA Negative (Negative); Ketones Urine Trace (Negative); Leukocyte Esterase Urine Negative (Negative); Nitrite Urine Negative (Negative); Protein Urine Trace (Negative); RBC Urine Automated 0-4 /hpf (0-4); Specific Gravity Urine 1.032 (1.000-1.030); Urobilinogen Urine Negative (Negative)
--- NOTE | 2022-12-23 02:20 | History & Physical Report ---
Date of Service December 23, 2022 Assessment & Plan (1) CAP (community acquired pneumonia): (2) Acute right flank pain: (3) GERD (gastroesophageal reflux disease): (4) CAD (coronary artery disease): (5) TIA (transient ischemic attack): (6) Hypoxia: (7) GERD (gastroesophageal reflux disease): (8) Hypertension: (9) Hypercholesterolemia: Plan Community-acquired pneumonia of right lung, with MDR risk factors/hypoxia- Patient lives at [facility], which increases his risk for MDR infection Zosyn 4.5 g IV every 8 hours, begun by the ED He was given a DuoNeb treatment in the ED, and will continue Duonebs every 4 hours while awake and every 2 hours when necessary. He was given methylprednisolone 125 mg IV, will continue 40 mg IV every 8 hours Guaifenesin extended release 600 mg p.o. every 12 hours Nasal cannula oxygen, titrate to keep pulse ox 92-94% CAD/hypertension- Continue clopidogrel 75 mg daily, irbesartan 75 mg daily and metoprolol tartrate 100 mg p.o. twice daily with hold parameters Abdominal aortic aneurysm- 4.2 x 4.5 cm Family reports this is followed by outpatient physicians Hyperlipidemia- Continue rosuvastatin 20 mg in the evening GERD- Continue omeprazole/pantoprazole BPH with chronic bladder outlet obstruction Continue dutasteride Dementia- Continue memantine 10 mg twice daily Patient has been DNR/DNI in the past, however, I discussed this with his family present in the room, and he would like to be full code now History of Present Illness Chief Complaint: The patient reports that he went out to eat with family this evening, and developed significant right flank pain which was reminiscent of his previous kidney stone pain. Primary Care Provider: Stevie Meade MD The patient is an 82-year-old male with past medical history including GERD, CAD, TIA, gross hematuria, BPH with LUTS, nephrolithiasis, hypertension, hypercholesterolemia and DVT left lower extremity. He developed right flank pain when he had gone out to eat with family, and due to persistence of this pain, he presented to the ED for further assessment. CT scan of the abdomen pelvis was negative for kidney stones, but did note a previously known infrarenal AAA of 4.2 x 4.5 cm and BPH with chronic bladder outlet obstruction. Chest x-ray showed a right middle lobe and right lower lobe infiltrate. Significant laboratories: WBC 12.11, hemoglobin 17.7, hematocrit 4051.3, creatinine 1.22 and glucose 114. Allergies Allergy/AdvReac Type Severity Reaction Status Date / Time lisinopril AdvReac Intermediate Cough Verified 09/04/22 09:47 Home Medications Medication Instructions Recorded Confirmed Type cholecalciferol (vitamin D3) 25 25 mcg PO QAM 06/24/21 09/04/22 History mcg (1,000 unit) capsule (Vitamin D3) glucosamine-chondroitin 250 mg-200 1 tab PO QPM 06/24/21 09/04/22 History mg tablet (Osteo Bi-Flex) omeprazole magnesium 20 mg 20 mg PO DAILY 06/24/21 09/04/22 History tablet,delayed release (Prilosec OTC) rosuvastatin 20 mg tablet (Crestor) 20 mg PO QPM 06/24/21 09/04/22 History clobetasol 0.05 % topical ointment 1 applic topical DIRECTED PRN 02/21/22 09/04/22 History Skin Irritation dutasteride 0.5 mg capsule 0.5 mg PO QPM 02/21/22 09/04/22 History (Avodart) irbesartan 75 mg tablet 75 mg PO DAILY 04/17/22 09/04/22 History metoprolol tartrate 100 mg tablet 100 mg PO BID 04/17/22 09/04/22 History clopidogrel 75 mg tablet 75 mg PO DAILY #30 tabs 04/18/22 09/04/22 Rx doxycycline hyclate 100 mg tablet 100 mg PO DAILY #90 tabs 09/04/22 09/04/22 Rx memantine 10 mg tablet (Namenda) 10 mg PO BID 09/04/22 09/04/22 History Past Med/Surg History Medical History Bilateral cellulitis of lower leg BPH (benign prostatic hyperplasia) CAD (coronary artery disease) Cellulitis of scrotum Deep vein thrombosis RT LEG (4 YEARS AGO/? REASON) GERD (gastroesophageal reflux disease) Hearing deficit History of bladder stone History of kidney stones History of skin cancer Hypercholesterolemia Hypertension Myocardial Infarction 10 YEARS AGO Nephrolithiasis Pulmonary embolism 4 YEARS AGO ? REASON Reactive airway disease NO INHALER TIA (transient ischemic attack) MAY 20, 2021>SYMPTOMS RESOLVED/NO DEFECITS Surgical History H/O eye surgery LEFT EYE LASER SURGERY History of anesthesia reaction History of colonoscopy History of cystoscopy History of heart artery stent 2 STENTS PLACED ([facility]/10 YEARS AGO) History of lithotripsy History of tooth extraction Family History Father History of parotid cancer Prostate cancer Cardiac disorder Mother Diabetes Cardiac disorder Brother Prostate cancer Kidney stones Other No family history of adverse response to anesthesia Social History Smoking Status: Never smoker Second Hand Exposure: No; Hx Alcohol Use: No Hx Substance Use: No Preferred Language: Afghan Communication Ability: Effective Matchbook Maker Required: No Beliefs That Will Affect Care: None marital status: / Current Living Situation: Alone Current Living Situation Comment: lives in [facility] current occupational status: retired Feels Safe at Home: Yes Assistive Devices: Cane and Glasses Review of Systems Review of Systems: The patient denies chest pain, palpitations, shortness of breath, dyspnea on exertion, cough, lower extremity swelling, sore throat, fevers, chills, sweats, vomiting, diarrhea , constipation, pelvic pain, blood in urine or stool, dysuria, urinary frequency or urgency, lightheadedness, dizziness, headache, memory loss, loss of consciousness, rash, abnormal bruising or bleeding, imbalance, focal or generalized weakness, numbness or tingling in arms or legs, generalized arthralgias or myalgias, neck pain, or night sweats. The review of systems is otherwise negative other than for that already noted above, and at least 10 systems have been reviewed. Physical Exam 2 Physical Exam: The patient is awake, alert and oriented 3, well developed and well nourished, normocephalic and atraumatic, lying in bed and in no acute distress. HEENT--PERRL, EOMI, mucous membranes and oropharynx normal. Neck--supple. No JVD. No bruits. Thyroid normal, trachea midline, no adenopathy. Heart--normal S1 and S2. No murmurs, rubs or gallops. Lungs--coarse breath sounds right base. No respiratory distress, no accessory muscle use. Abdomen--normal bowel sounds and soft. Nontender. Nondistended, no hernias or masses, no organomegaly. Extremities--no cyanosis or clubbing. No edema. Dermatologic--normal skin turgor, normal color, no abnormal lymph nodes, no rash. Neurologic--cranial nerves II through XII grossly intact. Rheumatologic--normal range of motion. Psychiatric--normal affect. Results & Data Results & Data ([facility]) Vital Signs (Past 12 Hours) Vital Signs Temp Pulse Resp BP Pulse Ox O2 Del Method O2 Flow Rate 12/23/22 01:30 104 H 26 H 162/95 H 92 12/23/22 01:00 101 H 27 H 187/89 H 94 Nasal Cannula 3 12/22/22 22:45 36.7 C 99 H 24 181/76 H 93 Room Air Laboratory Results Laboratory Results WBC 12.11 K/ul (4.8-10.8) H 12/22/22 23:00 RBC 5.99 M/uL (4.70-6.10) 12/22/22 23:00 Hgb 17.7 g/dl (14.0-18.0) 12/22/22 23:00 Hct 51.3 % (42.0-52.0) 12/22/22 23:00 MCV 85.6 fL (80.0-100.0) 12/22/22 23:00 MCH 29.5 pg (25.0-34.0) 12/22/22 23:00 MCHC 34.5 g/dL (32.0-36.0) 12/22/22 23:00 RDW Std Deviation 42.2 fL (36.4-46.3) 12/22/22 23:00 RDW Coeff of Kateryna 13.5 % (11.5-14.5) 12/22/22 23:00 Plt Count 182 K/uL (130-400) 12/22/22 23:00 MPV 10.3 fL (9.4-12.4) 12/22/22 23:00 Immature Gran % (Auto) 0.2 % 12/22/22 23:00 Neut % (Auto) 75.9 % 12/22/22 23: Lymph % (Auto) 11.4 % 12/22/22 23:00 Dale % (Auto) 10.0 % 12/22/22 23:00 Eos % (Auto) 2.0 % 12/22/22 23:00 Baso % (Auto) 0.5 % 12/22/22 23:00 Neut # (Auto) 9.19 K/uL (1.40-6.50) H 12/22/22 23:00 Lymph # (Auto) 1.38 K/uL (1.2-3.4) 12/22/22 23:00 Dale # (Auto) 1.21 K/uL (0.11-0.59) H 12/22/22 23:00 Eos # (Auto) 0.24 K/uL (0-0.50) 12/22/22 23:00 Baso # (Auto) 0.06 K/uL (0-0.2) 12/22/22 23:00 Immature Gran # (Auto) 0.03 K/uL (0.01-0.20) 12/22/22 23:00 Sodium 138 mmol/L (136-145) 12/22/22 23:00 Potassium 4.2 mmol/L (3.5-5.1) 12/22/22 23:00 Chloride 103 mmol/L (98-107) 12/22/22 23:00 Carbon Dioxide 26 mmol/L (21-32) 12/22/22 23:00 Anion Gap 9 (3-11) 12/22/22 23:00 BUN 18 mg/dl (6-23) 12/22/22 23:00 Creatinine 1.22 mg/dl (0.6-1.4) 12/22/22 23:00 Est Cr Clr Drug Dosing 48.1 ml/min 12/22/22 23:00 Est GFR ( Amer) 63.6 ml/min 12/22/22 23:00 Est GFR (Non-Af Amer) 54.9 ml/min 12/22/22 23:00 BUN/Creatinine Ratio 14.8 (10-20) 12/22/22 23:00 Glucose 114 mg/dl (70-99(Fasting)) H 12/22/22 23:00 Calcium 9.6 mg/dl (8.5-10.1) 12/22/22 23:00 Total Bilirubin 0.9 mg/dl (0.2-1.0) 12/22/22 23:00 AST 19 U/L (13-39) 12/22/22 23:00 ALT 11 U/L (7-52) 12/22/22 23:00 Alkaline Phosphatase 109 U/L (34-104) H 12/22/22 23:00 Troponin I High Sens 6.7 pg/ml (0-20) 12/22/22 23:00 B-Natriuretic Peptide 267 pg/ml (0-100) H 12/22/22 23:00 Total Protein 7.3 gm/dl (6.0-8.3) 12/22/22 23:00 Albumin 4.2 gm/dl (3.4-5.0) 12/22/22 23:00 Globulin 3.1 gm/dl (2.5-4.0) 12/22/22 23:00 Albumin/Globulin Ratio 1.4 (0.9-2) 12/22/22 23:00 Urine Color Yellow 12/23/22 00:45 Urine Appearance Clear (Clear) 12/23/22 00:45 Urine pH 5.0 (4.5-7.5) 12/23/22 00:45 Ur Specific [place] 1.032 (1.000-1.030) H 12/23/22 00:45 Urine Protein Trace (Negative) H 12/23/22 00:45 Urine Glucose (UA) Negative (Negative) 12/23/22 00:45 Urine Ketones Trace (Negative) H 12/23/22 00:45 Urine Blood Trace (Negative) H 12/23/22 00:45 Urine Nitrite Negative (Negative) 12/23/22 00:45 Urine Bilirubin Negative (Negative) 12/23/22 00:45 Urine Urobilinogen Negative (Negative) 12/23/22 00:45 Ur Leukocyte Esterase Negative (Negative) 12/23/22 00:45 Urine WBC (Auto) 1-5 /hpf (0-5) 12/23/22 00:45 Urine RBC (Auto) 0-4 /hpf (0-4) 12/23/22 00:45 U Hyaline Cast (Auto) 5-10 /lpf (0-5) H 12/23/22 00:45 U Epithel Cells (Auto) 10-20 /lpf (0-5) H 12/23/22 00:45 Urine Bacteria (Auto) Negative (Negative) 12/23/22 00:45 SARS-CoV-2 (PCR) NEGATIVE (Negative) 12/23/22 01:45 Influenza Type A (PCR) Negative (Neg) 12/23/22 01:45 Influenza Type B (PCR) Negative (Neg) 12/23/22 01:45 RSV (RT-PCR) Negative (Neg) 12/23/22 01:45 Impressions Abdomen/Pelvis CT 12/22/22 22:57 CT SCAN OF THE ABDOMEN AND PELVIS WITH IV CONTRAST CLINICAL HISTORY: Generalized abdominal pain. COMPARISON STUDY: Abdominal CT dated 10/28/2021. TECHNIQUE: Following the IV administration of 88 cc of Optiray 350, CT scan of the abdomen and pelvis is performed from the lung bases to the proximal femora. Images are reviewed in the axial, sagittal, and coronal planes. IV contrast was administered without complication. A dose lowering technique was utilized adhering to the principles of ALARA. CT DOSE: 967.03 mGy.cm FINDINGS: Lung bases: The heart is enlarged and without pericardial effusion. The coronary arteries and aortic valve leaflets are densely calcified. There is trace right pleural effusion. Chronic fibrotic change and nodularity with foci of parenchymal scarring is again seen at the lung bases. This is similar to previous. There is a small to moderate hiatal hernia. Liver: The contrast-enhanced liver is normal in size, contour, and attenuation. There is no intrahepatic biliary ductal dilatation. The hepatic veins and portal veins are patent. Gallbladder: Unremarkable. Spleen: Normal in size and attenuation. Pancreas: Unremarkable. Adrenal glands: Unremarkable. Kidneys: The contrast enhanced kidneys demonstrate cortical atrophy and are without hydronephrosis. The kidneys enhance symmetrically. Bilateral nonobst ructing renal calculi measuring up to 5 mm. A 9 mm cyst is noted in the left upper pole. Abdominal vasculature: There is advanced atherosclerotic calcification of the abdominal aorta. An infrarenal abdominal aortic aneurysm measures 4.2 x 4.5 cm (AP x transverse). Bowel: There is no bowel obstruction. Mild fecal retention is seen throughout the colon. The appendix is well-visualized and normal. Peritoneum: There is no intraperitoneal free air or abdominal ascites. Lymphadenopathy: None. Pelvic viscera: The prostate gland is enlarged and heterogeneous noting medial lobe hypertrophy. The bladder wall is thickened/trabeculated indicating chronic outlet obstruction. There is a fat-containing left inguinal hernia. Skeletal structures: The skeletal structures are osteopenic. There is moderate to advanced lumbosacral spondylosis. A chronic compression deformity is noted in the body of L1. No lytic or blastic lesions are seen. IMPRESSION: 1. No acute infectious or inflammatory findings are identified in the abdomen or pelvis. 2. Bilateral nephrolithiasis. 3. There is a 4.2 x 4.5 cm infrarenal abdominal aortic aneurysm. 4. Cardiomegaly and chronic fibrotic change at the lung bases is similar to previous. 5. Additional findings as above. ACT 112: Negative or not required by law. Electronically signed by: Jorge Gross M.D. 12/23/2022 1:10 AM Code Status & VTE Plan Code Status Full code VTE Prophylaxis Plan VTE Prophylaxis will be ordered: Yes PG Care Time/CCT Total # of Minutes Spent Total Time Spent with Patient: Total time spent is greater than 50% in coordination of care (as documented) at patient's floor/unit and/or counseling patient: Coding Level of Care Code 51416 INT INP/OBS CARE 3/75MIN Diagnoses CAP (community acquired pneumonia) J18.9 Laterality: right Lung location: lower lobe of lung Acute right flank pain R10.9 GERD (gastroesophageal reflux disease) K21.9 CAD (coronary artery disease) I25.10 TIA (transient ischemic attack) G45.9 Hypoxia R09.02 Hypertension I10 Hypercholesterolemia E78.00 (1) CAP (community acquired pneumonia) Laterality: right Lung location: lower lobe of lung Qualified Code(s): J18.9 - Pneumonia, unspecified organism
[2022-12-23 02:43] LABS: Influenza A virus by PCR Negative (Neg); Influenza B virus by PCR Negative (Neg); RSV by PCR Negative (Neg); SARS CoV2 RNA(COVID-19) Ceph NEGATIVE (Negative)
[2022-12-23] MEDS ORDERED: ACETAMINOPHEN 325 MG TAB PO PRN (04:28)
[2022-12-23] MEDS ORDERED: ONDANSETRON INJ 2 MG/ML 2 ML VIAL IV PRN (04:28)
--- NOTE | 2022-12-23 06:46 | Ultrasound Report ---
BILATERAL LOWER EXTREMITY VENOUS DOPPLER HISTORY: Acute pain and swelling of the lower legs ? dvt COMPARISON STUDY: Duplex venous Doppler study 07/25/2021 FINDINGS: There is normal compressibility, flow, and augmentation within the right lower extremity de ep venous structures. Occlusive thrombus is noted within one of the duplicated left popliteal veins l ikely acute. Additional partially occluded thrombus is noted within the left posterior tibial veins. IMPRESSION: 1. Left lower extremity DVT. 2. No right lower extremity DVT. ACT 112: Negative or not required by law. Electronically signed by: Ze Nuñez M.D. 12/23/2022 6:44 AM
--- NOTE | 2022-12-23 06:46 | XRay Report ---
XR chest 1V portable HISTORY: 82 years-old Male cough acute cough COMPARISON: 03/10/2015 TECHNIQUE: AP view of the chest FINDINGS: Cardiac silhouette is enlarged. Pulmonary vascular congestion. Atherosclerosis of the aorta. No pneum othorax. Trace pleural effusions with mild bibasilar airspace opacities. Degenerative changes of the shoulders and spine. IMPRESSION: 1. Cardiomegaly with pulmonary vascular congestion. 2. Trace pleural effusions with mild bibasilar opacities suggestive of atelectasis versus pneumonia. ACT 112: Negative or not required by law. The above report was generated using voice recognition software. It may contain grammatical, syntax o r spelling errors. Electronically signed by: Ze Nuñez M.D. 12/23/2022 6:45 AM
[2022-12-23] MEDS: ALBUT/IPRATROP 3MG/0.5MG NEB 3 ML VIAL NEB SCH ×2 (07:08→11:02)
--- NOTE | 2022-12-23 07:08 | Hospitalist Progress Note ---
Date of Service December 23, 2022 Assessment & Plan (1) DVT (deep venous thrombosis): Plan: 82-year-old male with past medical history including GERD, CAD, TIA, gross hematuria, BPH with LUTS, nephrolithiasis, hypertension, hypercholesterolemia who presented due to right flank pain. He was admitted for presumed pneumonia according to initial imaging, but later found to have DVT of LLE with PE in right lung. DVT/PE -PE certainly enough to explain hypoxia at this time and with negative procal, pneumonia is less likely -- will DC abx, Solu-Medrol, nebs -DVT of left popliteal vein on Doppler -CTA Chest showing Right-sided acute appearing pulmonary emboli. Trace right pleural effusion with right greater than left bibasilar atelectasis and fibrosis. Triangular 3.5 cm consolidation of the basal right lower lobe may represent developing pulmonary infarct. Pneumonia could appear similarly. -Per chart review, patient is listed as having a PE without clear reason around 2016 -- unclear how long/which anticoagulant he took -Will start Eliquis 10mg BID x 7 days today and then decrease to 5mg BID as his kidney function is appropriate -Hypercoagulability would be less likely given even his initial PE would've been in his 70s -- he also had CT A/P scan without any signs of lymphadenopathy or metastatic lesions -Regardless of results, recurrence of clots would mean patient would benefit from indefinite anticoagulation so will defer workup at this time -HAS-BLED score of 2 (age & taking Plavix) -- I think benefits of both Plavix & Eliquis outweigh risks as he did have a TIA very recently in April -Echo pending to eval for right heart strain -Given oxygen requirement will monitor overnight and have PT/OT eval for home needs -- can plan DC as this develops History of TIA -In April -On Plavix, rosuvastatin 20mg, BP control with irbesartan & MTP tartrate -As above, with starting Eliquis his HAS-BLED would be 2 points, which would be moderate bleeding risk -At this time, given TIA was so recent, benefits of taking both Plavix & Eliquis would likely outweigh risks and he has never had any major/significant bleeds CAD/hypertension -Continue rosuvastatin 20mg daily, clopidogrel 75 mg daily, irbesartan 75 mg daily and metoprolol tartrate 100 mg p.o. twice daily with hold parameters Abdominal aortic aneurysm -4.2 x 4.5 cm -Family reports this is followed by outpatient physicians Hyperlipidemia -Continue rosuvastatin 20 mg in the evening GERD -Pantoprazole in hospital per hospital formulary -Omeprazole at home BPH with chronic bladder outlet obstruction -Continue dutasteride Dementia -Continue memantine 10 mg twice daily -Currently A&Ox3 with appropriate demeanor and conversations DVT ppx: Starting Eliquis as above FEN/GI: Heart healthy diet Dispo: Telemetry, PT/OT to eval for therapy needs (Pt lives at [facility]) CODE STATUS: FULL, discussed with admitting physician (2) Pulmonary embolism: (3) Acute right flank pain: (4) GERD (gastroesophageal reflux disease): (5) CAD (coronary artery disease): (6) TIA (transient ischemic attack): (7) Benign prostatic hyperplasia with urinary obstruction: (8) Hypertension: (9) Hypercholesterolemia: Admission and Anticipated Discharge Date Admission Date: December 23, 2022 Supervising Physician Co-Signing Physician Notes I personally examined the patient and verified all lewis points of history and exam, discussed case, and agree with decision making with Dr Tyson feeling better, off O2 at rest ~90%. extensive discussion w pt and family on dx and treatment, all quetisons answered to the best of my ability and to their satisfaction vitals noted nad heent nc at mmm breathing unlabored no accessory muscles good effort CT chest reviewed personally CBC, BMP noted as well recurrent VTE - acute DVT, PE - eliquis. O2/supportive care - wean as possible - home soon as reliably off O2 otherwise as above Subjective Patient seen at bedside this AM. He reports that his right-sided flank pain is feeling much better and states he did not know pneumonia could cause this. I informed him I wasn't so sure about the pneumonia and that, given his Doppler of LLE showed a DVT, we'd have to order a CTA of the chest to evaluate for PE. Informed he would require anticoagulation for the DVT anyway and that this would be the treatment for the PE if present. He agreed to being started on Eliquis after discussion of risks/benefits. He denies CP, SOB (though he is requiring 2 LNC to maintain above 90% sat), n/v, abd pain, f/c, cough, congestion. Review of Systems Review of Systems: All systems reviewed & are unremarkable except as noted in Subjective Physical Exam Physical Exam: GENERAL: A&Ox3. NAD. HEENT: PERRL, EOMI. Moist mucous membranes. NECK: No JVD. No lymphadenopathy. CHEST/LUNGS: Decreased breath sounds bilateral bases; right lower lobe with coarse sounds. HEART: RRR. No m/g/r. No carotid bruits. ABDOMEN: NT/ND, soft. BS+ x4 EXTREMITIES: No cyanosis, no clubbing, no edema SKIN: Warm and dry. No rashes or lesions. PSYCHIATRIC: Euthymic affect, no SI, no pressured speech, no hallucinations NEUROLOGIC: No FND. Results & Data Results & Data ([facility]) Vital Signs (Past 12 Hours) Vital Signs Temp Pulse Resp BP BP Pulse Ox O2 Del Method 12/23/22 04:44 36.4 C L 18 123/82 90 Room Air 12/23/22 04:39 Room Air 12/23/22 04:39 91 H 12/23/22 01:30 104 H 26 H 162/95 H 92 12/23/22 01:00 101 H 27 H 187/89 H 94 Nasal Cannula 12/22/22 22:45 36.7 C 99 H 24 181/76 H 93 Room Air O2 Flow Rate 12/23/22 04:44 12/23/22 04:39 12/23/22 04:39 12/23/22 01:30 12/23/22 01:00 3 12/22/22 22:45 Resident Activity Tracking Resident Involvement: Resident Care Provided Care Provided: Adult Hospital Medicine
[2022-12-23] MEDS ORDERED: methylPREDNISolone 40 MG in SYRINGE 0 ML IV SCH (08:00)
[2022-12-23] MEDS ORDERED: PIPERACILLIN/TAZOBACTAM 4.5 GM in DEXTROSE 5% 100 ML IV SCH (08:00)
[2022-12-23] MEDS: CLOPIDOGREL BISULFATE 75 MG TAB PO SCH (08:06)
[2022-12-23] MEDS: MEMANTINE HCL 10 MG TAB PO SCH ×2 (08:07→20:04)
[2022-12-23] MEDS: PANTOprazole 40 MG TAB PO SCH (08:07)
[2022-12-23] MEDS: CHOLECALCIFEROL 1,000 UNITS 25 MCG TAB PO SCH (08:07)
[2022-12-23] MEDS ORDERED: guaiFENesin 600 MG TABCR PO SCH (09:00)
[2022-12-23] MEDS ORDERED: ENOXAPARIN INJ 40 MG/0.4 ML SYR SQ SCH (09:00)
[2022-12-23] MEDS ORDERED: APIXABAN 5 MG TABLET PO SCH (09:00)
[2022-12-23] MEDS: APIXABAN 5 MG TABLET PO SCH ×2 (09:23→20:05)
[2022-12-23] MEDS: METOPROLOL TARTRATE 100 MG TAB PO SCH ×2 (09:23→20:04)
[2022-12-23] MEDS: LOSARTAN POTASSIUM 25 MG TAB PO SCH (09:23)
[2022-12-23] MEDS ORDERED: OPTIRAY 320 500ml IV ONE (09:56)
--- NOTE | 2022-12-23 10:42 | CT Scan Report ---
CT angio chest PE protocol CT DOSE: 736.71 mGy.cm HISTORY: 82 years-old Male with PE. Acute shortness of breath. Lower extremity DVT. TECHNIQUE: Multiple CTA images of the chest were obtained after the intravenous administration of 116 ml Optiray. Coronal and sagittal MIPS were obtained from the axial data set and were submitted for review. All measurements were obtained according to NASCET criteria. A dose lowering technique was u tilized adhering to the principles of ALARA. COMPARISON: Duplex venous Doppler study and CT abdomen and pelvis, CT abdomen and pelvis 10/28/2021 o f same day FINDINGS: CTA: The heart is upper limits of normal in size. Trace pericardial effusion. Moderate coronary artery kierra cifications. Suboptimal evaluation of the thoracic aorta secondary to contrast bolus timing. No thora cic aortic aneurysm or dissection identified. Suboptimal evaluation of the pulmonary arterial tree se condary to contrast bolus timing and respiratory motion artifact. Pulmonary emboli are noted within t he distal right main pulmonary artery extending into the lobar, segmental and subsegmental branches. Probable additional segmental and subsegmental left-sided pulmonary emboli. No evidence of right hear t strain. CT CHEST: Subcentimeter right-sided thyroid nodules. Mildly enlarged right hilar lymph nodes measure up to 1.2 cm. Additional subcentimeter mediastinal and bilateral hilar lymph nodes are also noted. Findings are likely reactive. Trace right pleural effusion. No pneumothorax. Bibasilar bronchial wall thickening with mucous pluggi ng. Chronic fibrosis of the lung bases. Mild linear consolidation within the left lung base. 3.5 cm t riangular consolidation of the posterior basal segment right lower lobe. No suspicious pulmonary nodu les identified. No acute process of the imaged upper abdomen. Mild gynecomastia. Degenerative changes of the shoulder s and spine. IMPRESSION: 1. Right-sided acute appearing pulmonary emboli. 2. Trace right pleural effusion with right greater than left bibasilar atelectasis and fibrosis. 3. Triangular 3.5 cm consolidation of the basal right lower lobe may represent developing pulmonary i nfarct. Pneumonia could appear similarly. 4. Bronchial wall thickening with bibasilar mucous plugging. 5. Likely reactive mediastinal and hilar lymphadenopathy. ACT 112: Negative or not required by law. The above report was generated using voice recognition software. It may contain grammatical, syntax o r spelling errors. Electronically signed by: Ze Nuñez M.D. 12/23/2022 10:40 AM
--- NOTE | 2022-12-23 11:24 | Electrocardiogram Report ---
Test Reason : Blood Pressure : / mmHG Vent. Rate : 096 BPM Atrial Rate : 096 BPM P-R Int : 138 ms QRS Dur : 078 ms QT Int : 358 ms P-R-T Axes : 040 014 028 degrees QTc Int : 452 ms Sinus rhythm with frequent , and consecutive Premature ventricular complexes Abnormal ECG When compared with ECG of 17-APR-2022 15:12, Premature ventricular complexes are now Present Right bundle branch block is no longer Present Confirmed by Heri Goddard ([id number]) on 12/23/2022 11:24:20 AM Referred By: Stevie Meade Confirmed By:Heri Goddard
--- NOTE | 2022-12-23 18:01 | Billing Data ---
Date of Service December 23, 2022 Coding Level of Care Code 86209 SUB INP/OBS CARE MIN
[2022-12-23] MEDS ORDERED: ROSUVASTATIN CALCIUM 20 MG TAB PO SCH (21:00)
[2022-12-24 07:34] LABS: Basophils # (auto) 0.01 K/uL (0-0.2); Basophils % (auto) 0.1 %; Hematocrit (blood only) 44.8 % (42.0-52.0); Hemoglobin 15.2 g/dl (14.0-18.0); Immature Granulocytes # (auto) 0.08 K/uL (0.01-0.20); Immature Granulocytes % (auto) 0.6 %; Lymphocytes # (auto) 0.91 K/uL (1.2-3.4); Lymphocytes % (auto) 6.4 %; Mean Corpuscular Hemoglobin 29.5 pg (25.0-34.0); Mean Corpuscular Hgb Conc 33.9 g/dL (32.0-36.0); Mean Corpuscular Volume 86.8 fL (80.0-100.0); Mean Platelet Volume 10.7 fL (9.4-12.4); Monocytes # (auto) 1.11 K/uL (0.11-0.59); Monocytes % (auto) 7.8 %; Neutrophils # (auto) 12.17 K/uL (1.40-6.50); Neutrophils % (auto) 85.1 %; Platelet Count 152 K/uL (130-400); RDW Coefficient of Variation 13.5 % (11.5-14.5); RDW Standard Deviation 42.8 fL (36.4-46.3); Red Blood Count 5.16 M/uL (4.70-6.10); White Blood Count 14.28 K/ul (4.8-10.8)
--- NOTE | 2022-12-24 07:44 | Hospitalist Progress Note ---
Date of Service December 24, 2022 Assessment & Plan (1) DVT (deep venous thrombosis): Plan: 82-year-old male with past medical history including GERD, CAD, TIA, gross hematuria, BPH with LUTS, nephrolithiasis, hypertension, hypercholesterolemia who presented due to right flank pain. He was admitted for presumed pneumonia according to initial imaging, but later found to have DVT of LLE with PE in right lung. DVT/PE -PE certainly enough to explain hypoxia at this time and with negative procal, pneumonia is less likely -- will DC abx, Solu-Medrol, nebs -DVT of left popliteal vein on Doppler -CTA Chest showing Right-sided acute appearing pulmonary emboli. Trace right pleural effusion with right greater than left bibasilar atelectasis and fibrosis. Triangular 3.5 cm consolidation of the basal right lower lobe may represent developing pulmonary infarct. Pneumonia could appear similarly. -Per chart review, patient is listed as having a PE without clear reason around 2016 -- unclear how long/which anticoagulant he took -Will start Eliquis 10mg BID x 7 days today and then decrease to 5mg BID as his kidney function is appropriate -Hypercoagulability would be less likely given even his initial PE would've been in his 70s -- he also had CT A/P scan without any signs of lymphadenopathy or metastatic lesions -Regardless of results, recurrence of clots would mean patient would benefit from indefinite anticoagulation so will defer workup at this time -HAS-BLED score of 2 (age & taking Plavix) -- I think benefits of both Plavix & Eliquis outweigh risks as he did have a TIA very recently in April -Echo with EF of 65 to 70%, basal septum is thickened and angulated consistent with sigmoid septum, left atrium moderately dilated, trileaflet aortic valve with prominent calcification and restriction of the right coronary cusp leading to mild aortic stenosis. -No oxygen has been required overnight and patient has done well when up walking -Formal respiratory therapy eval identified no oxygen needs History of TIA -In April -On Plavix, rosuvastatin 20mg, BP control with irbesartan & MTP tartrate -As above, with starting Eliquis his HAS-BLED would be 2 points, which would be moderate bleeding risk -At this time, given TIA was so recent, benefits of taking both Plavix & Eliquis would likely outweigh risks and he has never had any major/significant bleeds CAD/hypertension -Continue rosuvastatin 20mg daily, clopidogrel 75 mg daily, irbesartan 75 mg daily and metoprolol tartrate 100 mg p.o. twice daily with hold parameters Abdominal aortic aneurysm -4.2 x 4.5 cm -Family reports this is followed by outpatient physicians -Continue monitoring in outpatient setting Hyperlipidemia -Continue rosuvastatin 20 mg in the evening GERD -Pantoprazole in hospital per hospital formulary -Omeprazole at home BPH with chronic bladder outlet obstruction -Continue dutasteride Dementia -Continue memantine 10 mg twice daily -Currently A&Ox3 with appropriate demeanor and conversations DVT ppx: Starting Eliquis as above FEN/GI: Heart healthy diet Dispo: Telemetry, can plan for home when reliably off of O2 CODE STATUS: FULL, discussed with admitting physician (2) Pulmonary embolism: (3) Acute right flank pain: (4) GERD (gastroesophageal reflux disease): (5) CAD (coronary artery disease): (6) TIA (transient ischemic attack): (7) Benign prostatic hyperplasia with urinary obstruction: (8) Hypertension: (9) Hypercholesterolemia: Admission and Anticipated Discharge Date Admission Date: December 23, 2022 Physical Exam Physical Exam: GENERAL: A&Ox3. NAD. CHEST/LUNGS: Decreased breath sounds bilateral bases; right lower lobe with coarse sounds. HEART: RRR. No m/g/r. No carotid bruits. ABDOMEN: NT/ND, soft. BS+ x4 EXTREMITIES: No cyanosis, no clubbing, no edema SKIN: Warm and dry. No rashes or lesions. PSYCHIATRIC: Euthymic affect, no SI, no pressured speech, no hallucinations NEUROLOGIC: No FND. Results & Data Results & Data ([facility]) Vital Signs (Past 12 Hours) Vital Signs Temp Pulse Pulse Resp BP BP Pulse Ox 12/24/22 07:27 36.2 C L 74 16 168/81 H 92 12/24/22 07:17 63 12/24/22 04:28 12/24/22 03:00 36.4 C L 72 18 111/65 91 12/23/22 22:14 78 12/23/22 22:35 36.3 C L 67 18 102/57 L 92 12/23/22 19:55 Pulse Ox O2 Del Method O2 Del Method 12/24/22 07:27 Room Air 12/24/22 07:17 12/24/22 04:28 91 Room Air 12/24/22 03:00 Room Air 12/23/22 22:14 12/23/22 22:35 Room Air 12/23/22 19:55 Room Air
[2022-12-24] MEDS: APIXABAN 5 MG TABLET PO SCH (07:47)
[2022-12-24] MEDS: PANTOprazole 40 MG TAB PO SCH (07:47)
[2022-12-24] MEDS: METOPROLOL TARTRATE 100 MG TAB PO SCH (07:47)
[2022-12-24] MEDS: LOSARTAN POTASSIUM 25 MG TAB PO SCH (07:47)
[2022-12-24] MEDS: MEMANTINE HCL 10 MG TAB PO SCH (07:47)
[2022-12-24] MEDS: CHOLECALCIFEROL 1,000 UNITS 25 MCG TAB PO SCH (07:47)
[2022-12-24 07:48] LABS: Albumin Level 3.7 gm/dl (3.4-5.0); BUN Creatinine Ratio 23.4 (10-20); Calcium 9.1 mg/dl (8.5-10.1); Creatinine Clr Calc Pharmacy 58.2 ml/min; Est GFR (African American) 74.5 ml/min; Est GFR (Non-African American) 64.3 ml/min; Magnesium 2.2 mg/dl (1.7-2.4); Potassium 4.5 mmol/L (3.5-5.1)
[2022-12-24] MEDS: CLOPIDOGREL BISULFATE 75 MG TAB PO SCH (07:48)
--- NOTE | 2022-12-24 10:38 | Discharge Summary ---
Date of Service December 24, 2022 Admission HPI Per Admitting Provider The patient is an 82-year-old male with past medical history including GERD, CAD, TIA, gross hematuria, BPH with LUTS, nephrolithiasis, hypertension, hypercholesterolemia and DVT left lower extremity. He developed right flank pain when he had gone out to eat with family, and due to persistence of this pain, he presented to the ED for further assessment. CT scan of the abdomen pelvis was negative for kidney stones, but did note a previously known infrarenal AAA of 4.2 x 4.5 cm and BPH with chronic bladder outlet obstruction. Chest x-ray showed a right middle lobe and right lower lobe infiltrate. Significant laboratories: WBC 12.11, hemoglobin 17.7, hematocrit 4051.3, creatinine 1.22 and glucose 114. Principal Diagnosis DVT, PE Discharge Exam GENERAL: A&Ox3. NAD. CHEST/LUNGS: Decreased breath sounds bilateral bases; right lower lobe with coarse sounds. HEART: RRR. No m/g/r. No carotid bruits. ABDOMEN: NT/ND, soft. BS+ x4 EXTREMITIES: No cyanosis, no clubbing, no edema SKIN: Warm and dry. No rashes or lesions. PSYCHIATRIC: Euthymic affect, no SI, no pressured speech, no hallucinations NEUROLOGIC: No FND. Discharge Data Allergies Allergy/AdvReac Type Severity Reaction Status Date / Time lisinopril AdvReac Intermediate Cough Verified 09/04/22 09:47 Consultations 12/23/22 01:35 ED Decision to Admit Stat Ordered Studies 12/22/22 22:57 CT Abd and Pelvis [CT abd pelvis IV con only] Stat 12/23/22 01:35 US venous doppler LE BI Urgent 12/23/22 09:05 CT for pulmonary embolism PE [CT angio chest PE protocol] Urgent Hospital Course (1) DVT (deep venous thrombosis): 82-year-old male with past medical history including GERD, CAD, TIA, gross hematuria, BPH with LUTS, nephrolithiasis, hypertension, hypercholesterolemia who presented due to right flank pain. He was admitted for presumed pneumonia according to initial imaging, but later found to have DVT of LLE with PE in right lung. DVT/PE -PE certainly enough to explain hypoxia at this time and with negative procal, pneumonia is less likely -- will DC abx, Solu-Medrol, nebs -DVT of left popliteal vein on Doppler -CTA Chest showing Right-sided acute appearing pulmonary emboli. Trace right pleural effusion with right greater than left bibasilar atelectasis and fibrosis. Triangular 3.5 cm consolidation of the basal right lower lobe may represent developing pulmonary infarct. Pneumonia could appear similarly. -Per chart review, patient is listed as having a PE without clear reason around 2016 -- unclear how long/which anticoagulant he took -Started on Eliquis, continue upon DC -Hypercoagulability would be less likely given even his initial PE would've been in his 70s -- he also had CT A/P scan without any signs of lymphadenopathy or metastatic lesions -Regardless of results, recurrence of clots would mean patient would benefit from indefinite anticoagulation so will defer workup at this time -HAS-BLED score of 2 (age & taking Plavix) -- I think benefits of both Plavix & Eliquis likely outweigh risks as he did have a TIA very recently in April -Echo with EF of 65 to 70%, basal septum is thickened and angulated consistent with sigmoid septum, left atrium moderately dilated, trileaflet aortic valve with prominent calcification and restriction of the right coronary cusp leading to mild aortic stenosis. -No oxygen has been required overnight and patient has done well when up walking -Formal respiratory therapy eval identified no oxygen needs History of TIA -In April -On Plavix, rosuvastatin 20mg, BP control with irbesartan & MTP tartrate -As above, with starting Eliquis his HAS-BLED would be 2 points, which would be moderate bleeding risk -At this time, given TIA was so recent, benefits of taking both Plavix & Eliquis would likely outweigh risks and he has never had any major/significant bleeds CAD/hypertension -Continue rosuvastatin 20mg daily, clopidogrel 75 mg daily, irbesartan 75 mg daily and metoprolol tartrate 100 mg p.o. twice daily with hold parameters Abdominal aortic aneurysm -Measures 4.2 x 4.5 cm -Family reports this is followed by outpatient physicians -Continue monitoring in outpatient setting Hyperlipidemia -Continue rosuvastatin 20 mg in the evening GERD -Pantoprazole in hospital per hospital formulary -Omeprazole at home BPH with chronic bladder outlet obstruction -Continue dutasteride Dementia -Continue memantine 10 mg twice daily -Currently A&Ox3 with appropriate affect and conversations Dispo: Home -- self-care (2) Pulmonary embolism: (3) Acute right flank pain: (4) GERD (gastroesophageal reflux disease): (5) CAD (coronary artery disease): (6) TIA (transient ischemic attack): (7) Benign prostatic hyperplasia with urinary obstruction: (8) Hypertension: (9) Hypercholesterolemia: Total Time Total Time Spent Total Time Spent (In Minutes): <30 Discharge Plan Discharge Items Patient Disposition: Home - Self-Care Reason For Visit: ACUTE RESP FAILURE W/ HYPOXIA,PNEUMONIA OF RT LUNG Discharge Diagnosis: DVT, pulmonary embolism Condition on Discharge: Good Activity: Per Instructions section Non-emergency contact: Primary Care Provider Call non-emergency contact if: you have any medication questions and your symptoms worsen Follow-up/Referrals: Stevie Meade MD [Primary Care Provider] - Diet: Heart Healthy Addtl Attending Provider Instructions: You were admitted to [facility] due to right flank pain, which was initially thought to be due to pneumonia. However, a Doppler ultrasound of your lower extremities demonstrated a blood clot in your left leg. Subsequently, a CT scan of your chest was performed and found a pulmonary embolism causing an infarction of part of your lung. This is most likely the source of your right-sided pain. Initially, you are requiring oxygen by nasal cannula to maintain your saturation above 90%. However, after initiation of treatment with blood thinners, your respiratory status improved and you were able to maintain your saturation above 90% without oxygen support. As this seems to be your second episode of a DVT/PE, it is now recommended that you continue to take a blood thinner for the rest of your life. We have prescribed for you a blood thinner called Eliquis. You will take 10mg (2 pills) twice daily until 12/29 and then start taking 5mg (1 pill) twice daily on 12/30. Additionally, a CT scan of your abdomen showed an incidental finding of 4.2 x 4.5 cm aneurysm of your abdominal aorta. At the current size, no intervention would be recommended but we do suggest following it with yearly ultrasounds. Please follow with your PCP for this. Please follow-up with your primary care provider to discuss your hospitalization and management of your DVT/PE as well as your chronic conditions going forward. If you develop any new or worsening symptoms such as chest pain, shortness of breath, bloody cough, bloody vomiting, dark stools, bloody stools please return to the emergency room for reevaluation. Pending Studies at Discharge: No Stand-Alone Forms: [facility], Smoking Cessation Medications and DC Order Prescriptions: New Eliquis 5 mg Tablet See Rx Instructions .ROUTE .COMPLEX Qty: 64 0RF Rx Instructions: Take 10mg (2 pills) twice daily until 12/29, then take 5mg (1 pill) twice daily starting on 12/30 Continued memantine [Namenda] 10 mg tablet 10 mg PO BID doxycycline hyclate 100 mg tablet 100 mg PO DAILY Qty: 90 1RF Rx Instructions: Take with food and take a daily probiotic. clobetasol 0.05 % ointment 1 applic topical DIRECTED PRN (Reason: Skin Irritation) cholecalciferol (vitamin D3) [Vitamin D3] 25 mcg (1,000 unit) Capsule 25 mcg PO QAM rosuvastatin [Crestor] 20 mg Tablet 20 mg PO QPM glucosamine-chondroitin [Osteo Bi-Flex] 250-200 mg Tablet 1 tab PO QPM omeprazole magnesium [Prilosec OTC] 20 mg Tablet,Delayed Release (Dr/Ec) 20 mg PO DAILY dutasteride [Avodart] 0.5 mg capsule 0.5 mg PO QPM metoprolol tartrate 100 mg tablet 100 mg PO BID irbesartan 75 mg Tablet 75 mg PO DAILY clopidogrel 75 mg tablet 75 mg PO DAILY Qty: 30 0RF Discharge Orders: Discharge Order (Routine); Ordered 12/24/22 [facility] Data Admit Date/Time: 12/23/22 02:20 Attending Provider: Jp Li Admit Provider: Bryan Dorado Primary Care Provider: Stevie Meade Other Providers: Bryan Dorado Other Interventions: Discharge Summary Assessment (RN) Last Done: 12/24/22 13:15 Supervising Physician Co-Signing Physician Notes I personally examined the patient and verified all lewis points of history and exam, discussed case, and agree with decision making with Dr Tyson Feeling okay. Feeling up to going home. Notes that he walked with respiratory therapy and did not need oxygen. Discussed incidental finding of AAA and outpatient follow-up. vitals noted nad heent nc at mmm breathing unlabored no accessory muscles good effort neuro no focal deficits. recurrent VTE - acute DVT, PE - eliquis. Safe for homeindefinite anticoagulation (consider reduction to prophylactic dosing in 3-6 months depending on his progress) AAAincidental finding. 4.5 cm in largest dimension, outpatient follow-up. otherwise as above Resident Activity Tracking Resident Involvement: Resident Care Provided Care Provided: Adult Hospital Medicine
--- NOTE | 2022-12-24 12:59 | Communication Note ---
Date of Service: December 24, 2022 By CMS guidelines, a determination that the admission or continued stay is not medically necessary has been made by a member of the UR committee and raúl borja for this hospital stay, therefore a Code 44 will be completed and the Inpatient admission will be changed to outpatient.
--- NOTE | 2022-12-24 12:59 | Communication Note ---
Date of Service: December 24, 2022 By CMS guidelines, a determination that the admission or continued stay is not medically necessary has been made by a member of the UR committee and a ph ysician for this hospital stay, therefore a Code 44 will be completed and the Inpatient admission will be changed to outpatient.
--- NOTE | 2022-12-24 14:15 | Billing Data ---
Date of Service December 24, 2022 Coding Level of Care Code HOSP INP/OBS DISCH 30 MIN/LESS
== END 2022-12-24 13:32 | disposition home or self-care (01) ==
LOC: ED 22:43 → SUATTDRO 12-23 02:20 → 2S 12-23 02:20 → INTOOBSV 12-23 02:20 → 2S 12-23 03:26